=== PATIENT | female | born 1945 | race Caucasian/White ===

== ENCOUNTER 2023-07-26 16:03 | Inpatient (IN) | payer OTHER, SELFPAY ==
[2023-07-26 12:27] VITALS: BP 124/65
--- NOTE | 2023-07-26 12:42 | ED.GENMED ---
History of Present Illness
General
Chief Complaint: Breathing Problem
Source: patient
Exam Limitations: none
Time Seen by Provider: 07/26/23 12:35
Travel History
Have you had any contact with someone who has COVID-19?: No
Do you have any symptoms of coronavirus? Fever > 100 degrees, chills, cough, shortness of breath, sore throat, loss of taste or smell, muscle aches, or headache?: Yes
Symptoms:: SOB
History of Present Illness
History of Present Illness:
See MDM
Past History
Past History
ED Past Medical History: COPD and HTN
ED Past Surgical History: None
Social History
Tobacco: Smoker
Alcohol: None
Phy Exam
Physical Exam
Physical Exam:
See MDM
Scores
Heart Failure Risk
Heart Failure Risk Score: Not Applicable
Course
Orders/Labs/Results
Orders:
Orders
07/26/23 12:29
ECG [Electrocardiogram (*1)] Urgent
Reason for Study: Tachycardia
EKG- Treatment ONCE
07/26/23 12:41
CT Chest Pe Study Urgent
Comment:
Reason For Exam: SOB, chest and back pain
0.9% Sodium Chloride 1000 ml [Nss] 1,000 ml IV BOLUS
07/26/23 12:51
COVID-19 Antigen Urgent
Source: Nasal Swab
Complete Blood Count/With Diff Urgent
Comprehensive Metabolic Panel Urgent
Manual Differential Urgent
NT-proBNP Urgent
PTT Urgent
Prothrombin Time Urgent
Troponin I Urgent
07/26/23 14:50
Piperacillin/Tazo 3.375 Gram [Zosyn] 3.375 gram in 50 ml IV NOW
Vancomycin [Vancocin] 1,250 mg 0.9% Sodium Chloride 250 ml [Nss] 250 ml IV NOW
07/26/23 15:00
Blood Culture Q30M
JANNIE Source: Blood/Venous
Specimen Description:
07/26/23 15:30
Blood Culture Q30M
JANNIE Source: Blood/Venous
Specimen Description:
Abnormal Lab Results
07/26/23
12:51
WBC 29.4 H 10^3/uL
(4.8-10.8)
Abs Neuts (Manual) 26.7 H 10^3/uL
(1.4-6.5)
Segmented Neutrophils 81 H %
(42-75)
Band Neutrophils 10 H %
(0-3)
Lymphocytes (Manual) 4 L %
(20-51)
PT 18.1 H Sec
(11.4-14.6)
APTT 36.1 H Sec
(23.4-35.0)
Sodium 132 L mmol/L
(135-145)
Carbon Dioxide 19 L mmol/L
(22-30)
BUN 38 H mg/dl
(7-17)
Creatinine 1.7 H mg/dL
(0.6-1.0)
Glucose 113 H mg/dl
(70-99)
Alkaline Phosphatase 138 H U/L
(38-126)
07/26/23 12:51
07/26/23 12:51
Vital Signs
Initial and Last Documented VS:
Initial Vital Signs
Temp Pulse Resp BP Pulse Ox
98.3 F 141 18 124/65 93
07/26/23 12:27 07/26/23 12:27 07/26/23 12:27 07/26/23 12:27 07/26/23 12:27
Last Documented Vital Signs
Temp Pulse Resp BP Pulse Ox
98.3 F 127 30 102/63 95
07/26/23 12:27 07/26/23 13:45 07/26/23 13:45 07/26/23 13:05 07/26/23 13:45
MDM/Problems Addressed
Differential Diagnosis Includes:
HPI and MDM Narrative:
77-year-old female presenting with shortness of breath, chest and back pain. Symptoms have been ongoing since Tuesday. She went to urgent care and had a chest x-ray and there was a concern for left lower lobe pneumonia. Patient states they were
concerned about her fast heart rate and low blood pressure. Patient is tachycardic on arrival but she is not hypotensive. Although she has no fever, she had the sensation that she had a fever earlier in the day where she took Motrin.
Given her tachycardia, chest and back pain, will obtain CT rule out PE
Physical exam
General: Well appearing and non-toxic
HEENT: protecting airway. Dry mucous membranes
Neck: appears supple
CV: No evidence of cyanosis. Tachycardic
Resp: No accessory muscle use. Rhonchorous breath sounds to left base
Abd: Non-distended
Extremities: No deformities
Neuro: alert
Psych: Normal affect
Skin: Intact
Problems Addressed including Acute and Chronic Conditions affecting care:
1. Shortness of breath
Acuity: acute
Prognosis: stable
Details: Given her symptoms, will obtain CT to rule out PE
2. Tachycardia
Acuity: acute
Prognosis: stable
Details: Patient is clinically dry. Will give IV fluids
3. Dehydration
Acuity: acute
Prognosis: stable
Details: Will give IV fluids
Updates
1:30 PM patient found to have elevated creatinine and low GFR. I question prior history of kidney issues and patient states now. Her lab abnormalities are likely in the setting of dehydration. She is already getting IV fluids. We had a long
discussion about risk of kidney injury with IV contrast but discussed that missing a diagnosis of PE could be significant. Patient understands the concerns and gave verbal consent for CT
CT consistent with pneumonia. I did discuss that radiology cannot 100% rule out a mass. Given her persistent tachycardia, will start IV antibiotics and admit
Differential Diagnosis (but not limited to): Pneumonia, PE, lung mass
Testing considered: D-dimer but patient is high risk
Drug therapy (if applicable): OTC meds, please see d/c instruction regarding Rx drugs
Amount and/or Complexity of Data Reviewed
Clinical info obtained from: Patient
External data reviewed: N/A
Labs I independently reviewed (but not limited to): Leukocytosis
Radiology: The CT scan was personally and independently reviewed. In addition, official CT report reviewed.
Pulse Ox: not hypoxic
EKG independently reviewed: Sinus tachycardia, left axis, no STEMI
Performance Makeup Artist: Sinus tachycardia
Critical Care: N/A
Risk of Complication:
Social Determinants of health: Good social support
Discussed with other providers: Hospitalist
Escalation of Care includes Admit/Obs: Given the pneumonia and vital sign abnormalities, will admit
Occasional wrong word or 'sound a like' substitutions may have occurred due to the inherent limitations of voice recognition software. Read the chart carefully and recognize, using context, where substitutions have occurred.
*Critical Care Note
Total Time (30-74mins, 75-104mins- exclusive of procedures): Not Applicable
ED Attending Note
-
Portions of this chart may have been created with voice recognition software.� Occasional wrong word or��sound alike� substitutions may have occurred due to the inherent limitations of voice recognition software.
Discharge Plan
Departure
Patient Disposition: Admit
Date of Disposition: 07/26/23
Time of Disposition: 14:54
Admit to: Telemetry
Presentation/result/management discussed w/ accepting MD/DO: Hospitalist
Discharge Problem:
PNA (pneumonia)
Referrals:
Kassi Shi MD [Family Provider] -
Interventions
Interventions:
*Risk Screen - Suicide Last Done: 07/26/23 12:48
*General Assessment Last Done: 07/26/23 12:48
*Neglect/Abuse Screening Last Done: 07/26/23 12:48
ED- Fall Risk Assessment Last Done: 07/26/23 13:04
*ED COVID-19 Vaccine History Last Done: 07/26/23 12:29
ED- Cardiac Assessment Last Done: 07/26/23 13:04
ED- Pulmonary Assessment Last Done: 07/26/23 13:04
Discharge Date and Time
Print Language: CZECH
[2023-07-26 12:47] VITALS: BMI 22.9
[2023-07-26] MEDS: NSS 1000 IV ×2 (12:55→17:30)
[2023-07-26 13:05] VITALS: BP 102/63
[2023-07-26 13:07] LABS: Hematocrit 44.8 % (37.0-47.0); Hemoglobin 14.8 g/dL (12.0-16.0); Mean Corpuscular Hgb 29.8 pg (27.0-31.0); Mean Corpuscular Volume 90.1 fL (81.0-99.0); Mean Platelet Volume 10.3 fL (7.4-10.4); Platelet Count 240 10^3/uL (130-400); Red Blood Cell Count 4.97 10^6/uL (4.20-5.40); Red Cell Dist. Width 14.1 % (11.5-14.5); White Blood Cell Count 29.4 10^3/uL (4.8-10.8)
[2023-07-26 13:15] LABS: COVID-19 Antigen Negative (Negative)
[2023-07-26 13:21] LABS: ALT (SGPT) 16 U/L (0-35); AST (SGOT) 24 U/L (14-36); Albumin 3.5 g/dl (3.5-5.0); Alkaline Phosphatase 138 U/L (38-126); Blood Urea Nitrogen 38 mg/dl (7-17); Calcium 9.3 mg/dl (8.4-10.2); Carbon Dioxide 19 mmol/L (22-30); Chloride 100 mmol/L (98-107); Estimated Creatinine Clearance 25 ml/min; Glucose 113 mg/dl (70-99); Potassium 4.3 mmol/L (3.5-5.1); Sodium 132 mmol/L (135-145); Total Bilirubin 0.8 mg/dl (0.2-1.3); Total Protein 6.6 g/dl (6.3-8.2); eGFR 30.89
[2023-07-26 13:23] LABS: INR 1.52; PT 18.1 Sec (11.4-14.6)
[2023-07-26 13:24] LABS: APTT 36.1 Sec (23.4-35.0)
[2023-07-26 13:32] LABS: NT-proBNP 5100 pg/ml; Troponin I < 0.012 ng/ml
[2023-07-26 13:33] LABS: Absolute Neutrophils -Man Diff 26.7 10^3/uL (1.4-6.5); Band Neutrophils 10 % (0-3); Lymphocytes 4 % (20-51); Metamyelocytes 1 % (-); Monocytes 4 % (2-9); Normal RBC Morphology Yes; Platelets Checked Yes; Segmented Neutrophils 81 % (42-75); Total Cells Counted 100
[2023-07-26] MEDS: ZOSYN 50 IV ×2 (15:26→21:46)
[2023-07-26 15:45] VITALS: BP 120/58
[2023-07-26 16:00] VITALS: BP 109/51
[2023-07-26] MEDS: VANCOCIN 300 ML IV (16:13)
[2023-07-26] MEDS: VANCOCIN 300 MG IV (16:13)
--- NOTE | 2023-07-26 16:35 | HPS.HSE ---
Addendum entered and electronically signed by Jermaine Baker MD 07/26/23 17:14:
Patient seen, examined and discussed with resident
Agree with assessment and plan
Impression:
Presentation with left sided back pain
Large left lower lobe pneumonia, likely community-acquired
COPD, tobacco smoker. Subcarinal lymphadenopathy by imaging with concern for underlying mass.
Sepsis secondary to pneumonia (chills, tachycardia, leukocytosis)
Acute kidney injury
Metabolic acidosis.
Mild hyponatremia sodium 132
Plan:
Not hypoxic, tachycardic.
CT scan reviewed with large left lower lobe infiltrate minimal pleural effusion, concern for subcarinal lymphadenopathy.
Broad-spectrum antibiotics including vancomycin/Zosyn/doxycycline
Blood cultures/sputum cultures
Mucolytic's
Incentive spirometry
Pulmonology evaluation.
Repeat imaging, depends on clinical progression inpatient versus outpatient follow-up.
Acute kidney injury
Close to normal anion gap metabolic acidosis
Mild acidemia
Mild hyponatremia
Check urine sodium/Fena
Check urinalysis.
Check TSH.
Challenged with isotonic solution
Hold angiotensin receptor kylah.
Original Note:
Family Physician
-
Family Physician: Kassi Shi
Chief Complaint
-
left-sided upper back pain, tachycardia
History of Present Illness
Hien Everett, age 77, came to the emergency on 07-26-23 on left-sided upper back pain and tachycardia. The pain began 2 days ago and she went for outpatient evaluation. She was tachycardic and chest x-ray outpatient was suspicious for pneumonia;
she was advised to go to the emergency. She underwent a CT chest to rule out a PE; she was found to have a large dense left lower lobe consolidation, suspicious for pneumonia. In the ED, she was tachycardic but otherwise stable. WBC count and serum
creatinine were elevated. She met the SIRS criteria, and was admitted for management of sepsis secondary to left lower lobe pneumonia.
Medical History
Past Medical History
Past Medical History: Reports Other (hypertension, nephrolithiasis, tobacco use disorder)
Past Surgical History: Reports Other (tubal ligation)
Social History
Tobacco: Smoker (60+ year daily user)
Alcohol: Occasional
Drug: None
Employment: Retired
Family History
Family History: Not pertinent
Allergies / Home Medications
Allergies reflects when Allergies were last updated in [facility].
Home Medications with original date entered in [facility]
Allergy/Medication List:
Allergies
Allergy/AdvReac Type Severity Reaction Status Date / Time
No Known Allergies Allergy Unverified 07/26/23 12:27
Home Medications
acetaminophen 325 mg tablet (Tylenol) 650 mg PO Q4HPRN PRN mild pain 07/26/23
amlodipine 5 mg tablet 5 mg PO DAILY 07/26/23
biotin 10,000 mcg chewable tablet (Hair, Skin and Nails (biotin)) 2 mcg PO DAILY 07/26/23
losartan 25 mg tablet 25 mg PO DAILY 07/26/23
pseudoephedrine-ibuprofen 30 mg-200 mg capsule (Advil Cold and Sinus) 1 cap PO BIDPRN PRN head cold 07/26/23
Review of Systems
-
History Source: Patient
Constitutional: Reports No Symptoms
EENT: Reports No Symptoms
Respiratory: Reports Cough (chronic); Denies Hemoptysis or Trouble Breathing
Cardiac: Reports No Symptoms
Abdomen/GI: Reports No Symptoms
: Reports No Symptoms
Musculoskeletal: Reports No Symptoms
Skin: Reports No Symptoms
Neurological: Reports No Symptoms
Endocrine: Reports No Symptoms
Hematologic/Lymphatic: Reports No Symptoms
Psych: Reports No Symptoms
Physical Exam
Vital Signs
Vital Signs
Temp Pulse Resp BP Pulse Ox
98.3 F 129 30 109/51 95
07/26/23 12:27 07/26/23 16:00 07/26/23 16:00 07/26/23 16:00 07/26/23 16:00
Physical Exam
General: No Apparent Distress and Comfortable
HEENT: NormoCephalic, Anicteric, Moist mucous membranes and Atraumatic
Respiratory: Rales (mild; left lower lobe) and Decreased Breath Sounds (left lower lung)
Cardiac: S1/S2 and Regular Rhythm
GI: Soft, Non Tender, Non Distended and No Hepatosplenomegaly
Genito-urinary: No costovertebral tender
Musculoskeletal: Clubbing, No Clubbing and Cyanosis
Skin: Warm, Dry and IV/Catheter Site
Neuro: Awake, Alert, Oriented and Nonfocal/grossly intact
Hematologic/Lymphatic: No Lymphadenopathy
Psych: Calm
Laboratory Results
-
07/26/23 12:51
07/26/23 12:51
Laboratory Results
PT 18.1 Sec (11.4-14.6) H 07/26/23 12:51
INR 1.52 07/26/23 12:51
APTT 36.1 Sec (23.4-35.0) H 07/26/23 12:51
Total Bilirubin 0.8 mg/dl (0.2-1.3) 07/26/23 12:51
AST 24 U/L (14-36) 07/26/23 12:51
ALT 16 U/L (0-35) 07/26/23 12:51
Alkaline Phosphatase 138 U/L (38-126) H 07/26/23 12:51
Troponin I < 0.012 ng/ml 07/26/23 12:51
Impression/Plan
-
Impression
* Left lower lobe community-acquired pneumonia
* Sepsis secondary to pneumonia
* Acute kidney injury
* Essential hypertension
* Tobacco use disorder
* Possible subcarinal lymphadenopathy
Plan
Left lower lobe community-acquired pneumonia
- CT chest on 07-26-23 noted a 'large dense left lower lobe consolidation with air bronchograms extending to the left hilum most likely representing pneumonia'.
- Started on vancomycin, piperacillin-tazobactam and doxycycline.
- Bending blood cultures x2.
- Check procalcitonin in AM.
Sepsis secondary to pneumonia
- Meets SIRS criteria; WBC count of 28 and tachycardia in 130s.
- IV hydration.
- Bending blood cultures x2 and procalcitonin per above.
- She is tachycardic, but otherwise hemodynamically stable.
Acute kidney injury
- Baseline unavailable to review today; records requested.
- Likely in setting of sepsis.
- IV hydration.
- BMP in AM.
Essential hypertension
- Continue amlodipine.
- Hold losartan in setting of worsened renal function.
Tobacco use disorder
- Daily user for 60+ years.
- Encouraged to consider cutting back/quitting.
Possible subcarinal lymphadenopathy
- Will need repeat CT chest in 4-6 weeks as outpatient.
- Pulmonology consulted.
DVT prophylaxis
- SCD.
Code status
- DNR-DNI.
[2023-07-26 17:30] VITALS: BP 110/69
[2023-07-26 17:51] VITALS: BMI 22.6
[2023-07-26 18:08] LABS: Osmolality Urine 406 mOsm/kg (300-900)
[2023-07-26 18:21] LABS: Urine Sodium 12 mmol/L (30-90)
--- NOTE | 2023-07-26 18:32 | PHA.VAN.IN ---
Assessment
- Assessment
Renal Function: Unknown baseline
Concomitant Antimicrobials: piperacillin/tazobactam, doxycycline
Plan
- Plan
Initial / Loading Dose: vanc 1500mg administered @ 1613
Maintenance Regimen: dosing by level
Monitoring: random level 07/26 599
MRSA Screen: Ordered per protocol
Pharmacokinetics Vancomycin I
- -
Patient Age: 77
Patient Sex: Female
Vancomycin Day #: 1
Indication: Pulmonary/Respiratory
Requesting Provider: Dr. Baker
Pertinent Antimicrobial Allergies:
no pertinent antimicrobial allergies
Height / Weight:
Height 5 ft 5 in
Actual Weight 61.5 kg
- Vital Signs / Lab Results
Temp Pulse Resp BP Pulse Ox
97.7 F 111 19 110/69 96
07/26/23 17:30 07/26/23 17:30 07/26/23 17:30 07/26/23 17:30 07/26/23 18:23
Lab Results - Hematology
07/26/23
12:51
WBC 29.4 H
Band Neutrophils 10 H
Lab Results - Chemistry
07/26/23
12:51
BUN 38 H
Creatinine 1.7 H
Estimated Creat Clear 25
Albumin 3.5
[2023-07-26] MEDS: VIBRAMYCIN 100 MG PO (20:03)
[2023-07-26] MEDS: MUCINEX 600 MG PO (20:03)
[2023-07-26 23:23] VITALS: BP 124/60
[2023-07-27] MEDS: ZOFRAN 4 MG IV (00:04)
[2023-07-27] MEDS: NSS 1000 IV ×3 (03:46→20:26)
[2023-07-27] MEDS: ZOSYN 50 IV ×4 (03:47→22:07)
--- NOTE | 2023-07-27 04:14 | DOWNTIME ---
There was a [employer] Downtime on 07/27/2023 from 0100 to 07/27/2023 at 0337. Downtime documentation of patient's care, including medication administrations, has been reconciled in the electronic record per guidelines. Refer to the
patient's paper chart under the miscellaneous tab to see printed paper medication records and downtime forms.
[2023-07-27 07:54] LABS: Vancomycin Random 7.7 ug/ml
[2023-07-27 08:00] VITALS: BP 122/62
[2023-07-27 08:15] LABS: Procalcitonin 11.18 ng/ml (0.0-0.25)
[2023-07-27 08:38] LABS: TSH Reflex To Free T4 0.46 uIU/ml (0.47-4.68)
--- NOTE | 2023-07-27 08:50 | PHA.VAN.FU ---
Vancomycin Assessment / Plan
- Assessment
Renal Function: No New Labs Today
In the past 24 hrs, patient has been: Afebrile
Concomitant Antimicrobials: piperacillin/tazobactam, doxycycline
- Assessment - Therapeutic Drug Monitoring
Random Level: 7.7 - drawn ~15H after 1500mg loading dose
- Dosing Plan
Dosing by Level: Re-dose today (Vanc 1000mg)
- Monitoring Plan
Random Level: 07/27 0600
- Follow Up
Pharmacy will continue to follow.
Vancomycin Follow UP
- -
Patient Age: 77
Patient Sex: Female
Vancomycin Day #: 2
Indication: Pulmonary/Respiratory
Requesting Provider: Dr. Baker
Pertinent Antimicrobial Allergies:
NKDA
Height / Weight:
Height 5 ft 5 in
Actual Weight 61.5 kg
- Vital Signs / Lab Results
Temp Pulse Resp BP Pulse Ox
97.9 F 90 16 124/60 96
07/26/23 23:23 07/26/23 23:23 07/26/23 23:23 07/26/23 23:23 07/26/23 23:23
Lab Results - Hematology
07/26/23
12:51
WBC 29.4 H
Band Neutrophils 10 H
Lab Results - Chemistry
07/26/23
12:51
BUN 38 H
Creatinine 1.7 H
Estimated Creat Clear 25
Albumin 3.5
Therapeutic Drug Monitoring
Random Vancomycin 7.7 ug/ml 07/27/23 07:25
[2023-07-27 09:07] LABS: Free T4 2.44 ng/dl (0.78-2.19)
[2023-07-27] MEDS: TYLENOL 650 MG PO ×2 (09:41→20:01)
[2023-07-27] MEDS: MUCINEX 600 MG PO ×2 (09:42→20:01)
[2023-07-27] MEDS: VIBRAMYCIN 100 MG PO (09:42)
[2023-07-27] MEDS: NORVASC 5 MG PO (09:42)
--- NOTE | 2023-07-27 10:01 | CON.PUL ---
Consultation
Consultation Request
Date/Time Consultation Requested: 07/26/2023 - 1650
Date/Time Consultation Performed: 07/27/2023921
Requesting Provider: Dr. Chakraborty
Performing Provider: Dr. Harris
Reason for Consultation: Pneumonia
Medical History
-
Chief Complaint: Back pain
History of Present Illness:
77-year-old female with a past medical history of hypertension and reported Hx of COPD who presents with left-sided/middle back pain for several days. Patient was at urgent care and then sent to the ER due to hypotension and pneumonia. Patient was
tachycardic in triage to the 140s with palpitations. In triage, she was afebrile to 98.3 �F, saturating 93% on room air, normotensive to 124/65 and breathing at 18-31 breaths/min. Labs showed leukocytosis to 29.4, hyponatremia to 132, elevated
creatinine 1.7 (no prior to compare to), negative troponin of <0.012, elevated proBNP of 5100, and COVID antigen negative. Blood cultures were collected, and CT of the chest was performed showing a large dense left lower lobe consolidation
representing pneumonia. There also was subcarinal lymphadenopathy however left hilar evaluation was limited so central mass/malignancy in the left lower chest was unable to be entirely excluded. There also was mild thickening of the left adrenal
gland. Patient was given 1 L NS 0.9% in the ER, also Zosyn and admitted to the hospitalist service with pulmonary service now consulted for additional management/recommendations.
When I saw the pt, she was in bed, on room air, breathing comfortably in NAD. She denies being hospitalized in last 3 months, and she says she lives at home. No Hx of recent PNA, and she carries a Dx of COPD but she is not sure how she was Dx.
She is not the best historian. She says she obtained a 'breathing test,' (I presume spirometry or full PFT) many many years ago, and she was told she had COPD. She takes no inhalers at home. She does not have a evp of products & co founder. She admits to
having allergies which are seasonal, mainly to pollen. She says this past Tuesday morning she started to feel sick, with body aches and pains, no coughing, but she felt feverish - she never took her temperature. Then her back began hurting, and
thats what led her to come here to the ER. She currently says her back pain is improved - she is breathing okay. Denies RAE, abd pain, nausea/vomiting/diarrhea.
PMHx: Reported history of COPD
PSHx: Tubal ligation
Past Medical History
Past Medical History: Other (Above as per HPI)
Past Surgical History: Other (Above as per HPI)
Social History
Tobacco: Smoker
Alcohol: Occasional
Drug: None
Employment: Retired
Family History
Family History: Reviewed & Not Pertinent
Allergies / Home Medications
Allergies
Allergy/AdvReac Type Severity Reaction Status Date / Time
No Known Allergies Allergy Unverified 07/26/23 12:27
Home Medications
�Medication �Instructions �Recorded �Confirmed �Last Taken �Type
acetaminophen 325 mg tablet 650 mg PO Q4HPRN PRN mild pain 07/26/23 07/26/23 07/26/23 History
(Tylenol)
amlodipine 5 mg tablet 5 mg PO DAILY Blood Pressure 07/26/23 07/26/23 07/23/23 History
biotin 10,000 mcg chewable tablet 2 mcg PO DAILY Supplement 07/26/23 07/26/23 Unknown History
(Hair, Skin and Nails (biotin))
losartan 25 mg tablet 25 mg PO DAILY Blood Pressure 07/26/23 07/26/23 07/23/23 History
pseudoephedrine-ibuprofen 30 1 cap PO BIDPRN PRN head cold 07/26/23 07/26/23 07/26/23 History
mg-200 mg capsule (Advil Cold and
Sinus)
Review of Systems
-
History Source: Patient
All other systems: Negative unless noted
Vitals / Labs / Diagnostic Testing
Vital Signs
Temp Pulse Resp BP Pulse Ox
98.8 F 81 18 122/62 97
07/27/23 08:00 07/27/23 08:00 07/27/23 08:00 07/27/23 08:00 07/27/23 08:00
Lab Data
07/26/23 12:51
07/26/23 12:51
Laboratory Results
07/26/23
12:51
PT 18.1 H
INR 1.52
APTT 36.1 H
Microbiology
07/26/23 21:15 Nose Nasal Screen MRSA (PCR) - Final
MRSA not detected - performed by PCR methodology.
Diagnostic Testing:
Physical Exam
-
HEENT: Normocephalic and Anicteric
Cardiovascular: S1/S2, Peripheral Edema (Negative) and Other (Tachycardic)
Respiratory: Wheeze (Negative), Rales (Negative), Rhonchi (Left posterior lung base) and Non-Labored Respirations
GI: Soft, Non Distended, Non Tender and Normal Bowel Sounds
Neurology: Awake, Alert and Tremors (Negative)
Skin: Warm and Dry
General: Comfortable, Fever (Negative) and Chills (Negative)
Assessment
-
Assessment: 77-year-old female with a past medical history of hypertension and reported Hx of COPD who presents with left-sided/middle back pain for several days. Patient was at urgent care and then sent to the ER due to hypotension and pneumonia.
Patient was tachycardic in triage to the 140s with palpitations. In triage, she was afebrile to 98.3 �F, saturating 93% on room air, normotensive to 124/65 and breathing at 18-31 breaths/min. Labs showed leukocytosis to 29.4, hyponatremia to 132,
elevated creatinine 1.7 (no prior to compare to), negative troponin of <0.012, elevated proBNP of 5100, and COVID antigen negative. Blood cultures were collected, and CT of the chest was performed showing a large dense left lower lobe consolidation
representing pneumonia. There also was subcarinal lymphadenopathy however left hilar evaluation was limited so central mass/malignancy in the left lower chest was unable to be entirely excluded. There also was mild thickening of the left adrenal
gland. Patient was given 1 L NS 0.9% in the ER, also Zosyn and admitted to the hospitalist service with pulmonary service now consulted for additional management/recommendations.
Impression:
#Left lower lobe pneumonia
#Leukocytosis with bandemia likely due to LLL pneumonia with sepsis without shock
#Tobacco use disorder
#Abnormal CT chest with LLL dense consolidative opacity with air bronchograms, nodular opacities in the lingula + subcarinal lymphadenopathy
#Centrilobular emphysema with reported history of COPD � no PFTs on file
#Elevated creatinine due to suspected CORINNE but unable to rule out CKD (no baseline values known at this time) - given reduced serum HCO3, I presume this is an CORINNE possibly with component of CKD
#Hyponatremia
#Abnormal TFTs with low TSH and elevated free T4 due to primary hyperthyroidism
Plan:
- Continue with broad-spectrum antibiotics with vancomycin/Zosyn + doxycycline
- Obtain infectious workup with blood Cx, check sputum Cx, legionella and Strep PNA urine antigens
- Given history of COPD I am not opposed to change doxycycline to azithromycin (QTc: 460ms on EKG from 07/26/2023)
- Obtain prior records if available of prior CT chest imaging or any spirometry/PFT studies done
- Unclear if she is on any maintenance inhalers, but in the meantime we will start her on DuoNebs QID with prn Duonebs in between (monitor tachycardia, and change to xopenex/atrovent if HR rises >100 + persists)
- Maintain SpO2 >88-94% with supplemental O2 as needed
- Incentive spirometer encouraged
- Mucolytics with flutter valve as needed
- Nicotine patch
- Renally dose all meds/Abx
- Trend sCr, UOP and sNa
- Replete electrolytes with K>4, Mg>2
- Maintain euglycemia with goal BG >100 and <180
- DVT ppx
Pulmonary service will continue to follow along. I will arrange for outpatient follow-up with me in the office for full PFTs and management of her suspected COPD. She will also need repeat CT chest in about 6-8 weeks to follow her left-sided
pneumonia to resolution.
Total time spent today was 55 minutes for this encounter. Time includes reviewing laboratory test/imaging results, reviewing pertinent medical records, obtaining and reviewing medical history, performing an appropriate exam, ordering medications,
tests and procedures. Time also includes documentation of this encounter, coordinating patient care and communicating with other healthcare professionals. Total time does not include separately billed tests performed on this date of service.
Data:
CTA Chest 07-26-2023:
No findings to suggest central pulmonary embolism.
Large dense left lower lobe consolidation with air bronchograms extending to the left hilum most likely representing pneumonia. Unfortunately, as there is some possible subcarinal lymphadenopathy and evaluation of the left hilum is limited, central
mass/malignancy in the left lower chest cannot be entirely excluded. Recommend short-term follow-up Chest CT to confirm complete resolution.
Mild thickening of the left adrenal gland.
--- NOTE | 2023-07-27 10:32 | W.PN.HOSP.TC ---
Addendum entered and electronically signed by Jermaine Baker MD 07/27/23 15:27:
Patient seen, examined and discussed with resident
Agree with assessment and plan
Impression:
Presentation with left sided back pain
Large left lower lobe pneumonia, likely community-acquired
COPD, tobacco smoker. Subcarinal lymphadenopathy by imaging with concern for underlying mass.
Sepsis secondary to pneumonia (chills, tachycardia, leukocytosis)
Acute kidney injury
Metabolic acidosis.
Mild hyponatremia sodium 132
Plan:
Respiratory status remained stable with no requirements for supplemental oxygen
Large left lower lobe pneumonia with minimal pleural effusion on CT scan.
Initiated on broad-spectrum antibiotics including vancomycin/Zosyn/doxycycline
Follow blood cultures.
Continue mucolytic's, incentive spirometry
Pulmonology consultation pending
With large infiltrate and lymphadenopathy, tobacco use disorder will require follow-up imaging.
Acute kidney injury
Creatinine improved with hydration
Monitor oral intake
Wean off IV fluids.
Monitor blood pressure trend and consider to reintroduce angiotensin receptor kylah
Noted abnormal TFTs likely in the pattern of euthyroid sick syndrome.
Repeat in 3 to 4 weeks.
Original Note:
Today's Communication/Plan
-
* Continue antibiotics.
* Incentive spirometry, mucolytics and duoneb.
Assessment / Plan
Assessment / Plan
Assessment
Hien Everett, age 77, came to the emergency on 07-26-23 on left-sided upper back pain and tachycardia. The pain began 2 days ago and she went for outpatient evaluation. She was tachycardic and chest x-ray outpatient was suspicious for pneumonia;
she was advised to go to the emergency. She underwent a CT chest to rule out a PE; she was found to have a large dense left lower lobe consolidation, suspicious for pneumonia. In the ED, she was tachycardic but otherwise stable. WBC count and serum
creatinine were elevated. She met the SIRS criteria, and was admitted for management of sepsis secondary to left lower lobe pneumonia.
Impression
* Left lower lobe community-acquired pneumonia
* Sepsis secondary to pneumonia
* Acute kidney injury
* Essential hypertension
* Tobacco use disorder
* Possible subcarinal lymphadenopathy
Plan
Left lower lobe community-acquired pneumonia
- CT chest on 07-26-23 noted a 'large dense left lower lobe consolidation with air bronchograms extending to the left hilum most likely representing pneumonia'.
- Started on vancomycin, piperacillin-tazobactam and doxycycline.
- Bending blood cultures x2.
- Procalcitonin 11.18 on 07-27-23.
- Mucolytics, duonebs and incentive spirometry.
- Pulmonary consulted.
Sepsis secondary to pneumonia
- Meets SIRS criteria; WBC count of 28 and tachycardia in 130s.
- IV hydration.
- Bending blood cultures x2 and procalcitonin per above.
- She is tachycardic, but otherwise hemodynamically stable.
Acute kidney injury
- Baseline unavailable to review today; records requested.
- Likely in setting of sepsis.
- IV hydration.
- BMP in AM.
Essential hypertension
- Continue amlodipine.
- Hold losartan in setting of worsened renal function.
Tobacco use disorder
- Daily user for 60+ years.
- A pack a day prior to admission; can consider nicotine patch.
- Encouraged to consider cutting back/quitting.
Possible subcarinal lymphadenopathy
- Will need repeat CT chest in 4-6 weeks as outpatient; inpatient if condition worsens.
- Pulmonology consulted.
DVT prophylaxis
- SCD.
Code status
- DNR-DNI.
Anticipated Discharge: 24 - 48 hours
Subjective/Interval History
-
Date of Service: July 27, 2023
Objective Data
-
Vital Signs:
Vital Signs
Temp Pulse Resp BP Pulse Ox
98.8 F 81 18 122/62 97
07/27/23 08:00 07/27/23 08:00 07/27/23 08:00 07/27/23 08:00 07/27/23 08:00
I&O
07/26/23 07/27/23 07/28/23
06:59 06:59 06:59
Intake Total 80 / 80
Output Total 300 / 300
Balance -220 / -220
Review of Systems
-
History Source: Patient
Constitutional: Reports No Symptoms
EENT: Reports No Symptoms Reported
Respiratory: Reports No Symptoms
Cardiac: Reports No Symptoms
Abdomen/GI: Reports No Symptoms
Genitourinary: Reports No Symptoms
Musculoskeletal: Reports Arthralgias (mild and intermittent back and ankle ache)
Skin: Reports No Symptoms
Neuro: Reports No Symptoms
Endocrine: Reports No Symptoms
Hematologic / Lymphatic: Reports No Symptoms
Allergy / Immunology: Reports No Symptoms
Physical Exam
-
General: No Apparent Distress and Comfortable
HEENT: Normocephalic, Atraumatic, Moist Mucous Membranes and Anicteric
Respiratory: Rales (mild; left lower lobe) and Decreased Breath Sounds (left lower lobe)
Cardiac: Regular Rhythm, S1/S2 and Tachycardic
GI: Soft, Nontender, Nondistended and No Hepatosplenomegaly
Genito-urinary: No Costovertebral Tender
Musculoskeletal: No Clubbing, No Cyanosis and No Edema
Skin: Warm, Dry and IV Access / Catheter Site
Neuro: Awake, Alert, Oriented and Nonfocal/Grossly Intact
Psych: Calm
[2023-07-27] MEDS: VANCOCIN 200 IV (11:27)
[2023-07-27 13:25] LABS: % Basophils 0.4 % (0-2); % Eosinophils 0.1 % (0-6); % Immature Granulocytes 0.9 % (0-0.5); % Lymphocytes 7.9 % (20.5-51.1); % Monocytes 4.2 % (1.7-9.3); % Neutrophils 86.5 % (42.2-75.2); Absolute Basophils 0.1 10^3/uL (0-0.2); Absolute Immature Granulocytes 0.2 10^3/uL (0-0.05); Absolute Monocytes 1.1 10^3/uL (0.1-0.6); Absolute Neutrophils 21.5 10^3/uL (1.4-6.5); Hematocrit 35.1 % (37.0-47.0); Mean Corp Hgb Conc. 34.2 g/dL (33.0-37.0); Mean Corpuscular Volume 87.8 fL (81.0-99.0); Mean Platelet Volume 10.8 fL (7.4-10.4); Nucleated Red Blood Cells % 0 %; Platelet Count 207 10^3/uL (130-400); Red Cell Dist. Width 14.4 % (11.5-14.5); White Blood Cell Count 24.9 10^3/uL (4.8-10.8)
[2023-07-27 13:38] LABS: Blood Urea Nitrogen 24 mg/dl (7-17); Calcium 8.3 mg/dl (8.4-10.2); Carbon Dioxide 22 mmol/L (22-30); Chloride 106 mmol/L (98-107); Estimated Creatinine Clearance 62 ml/min; Glucose 115 mg/dl (70-99); Potassium 3.7 mmol/L (3.5-5.1); Sodium 135 mmol/L (135-145); eGFR > 60.00
--- NOTE | 2023-07-27 14:19 | CM ---
Patient seen bedside.
IA completed.
Patient lives alone in a 1 story home with 2 steps to enter.
Patient independent prior to admission without assistive devices.
patient drives.
No hx VN.
Denies home care needs.
PCP: Dr Shi
Pharmacy: [facility]
Plan: home no needs.
[2023-07-27 14:45] LABS: Glycohemoglobin (HgbA1c) 5.5 % (4.0-5.6)
[2023-07-27] MEDS: DUONEB 3 ML INH ×2 (15:24→19:31)
[2023-07-27 16:00] VITALS: BP 117/63
[2023-07-27] MEDS: HEPARIN 5000 UNITS SC (20:01)
[2023-07-27] MEDS: ZITHROMAX INFUSION 250 IV (20:26)
[2023-07-27 22:58] VITALS: BP 134/81
[2023-07-28] MEDS: ZOSYN 50 IV ×2 (03:05→09:06)
[2023-07-28 06:05] LABS: % Basophils 0.4 % (0-2); % Eosinophils 0.7 % (0-6); % Immature Granulocytes 0.4 % (0-0.5); % Lymphocytes 9.3 % (20.5-51.1); % Monocytes 4.8 % (1.7-9.3); % Neutrophils 84.4 % (42.2-75.2); Absolute Basophils 0.1 10^3/uL (0-0.2); Absolute Eosinophils 0.1 10^3/uL (0-0.7); Absolute Immature Granulocytes 0.1 10^3/uL (0-0.05); Absolute Lymphocytes 1.6 10^3/uL (1.2-3.4); Absolute Monocytes 0.8 10^3/uL (0.1-0.6); Absolute Neutrophils 14.1 10^3/uL (1.4-6.5); Hematocrit 35.9 % (37.0-47.0); Hemoglobin 12.1 g/dL (12.0-16.0); Mean Corp Hgb Conc. 33.7 g/dL (33.0-37.0); Mean Corpuscular Hgb 30.3 pg (27.0-31.0); Mean Platelet Volume 11.2 fL (7.4-10.4); Nucleated Red Blood Cells % 0 %; Platelet Count 238 10^3/uL (130-400); Red Blood Cell Count 3.99 10^6/uL (4.20-5.40); Red Cell Dist. Width 14.4 % (11.5-14.5); White Blood Cell Count 16.7 10^3/uL (4.8-10.8)
[2023-07-28 06:35] LABS: Blood Urea Nitrogen 17 mg/dl (7-17); Calcium 8.7 mg/dl (8.4-10.2); Carbon Dioxide 23 mmol/L (22-30); Chloride 109 mmol/L (98-107); Estimated Creatinine Clearance 72 ml/min; Glucose 96 mg/dl (70-99); Potassium 4.1 mmol/L (3.5-5.1); Sodium 140 mmol/L (135-145); eGFR > 60.00
[2023-07-28 06:36] LABS: Vancomycin Random 6.7 ug/ml
--- NOTE | 2023-07-28 06:41 | PTCARENOTE ---
Patient`s IV infiltrated. IV fluids stopped and IV team called twice for new line. Awaiting response. Will pass along to dayshift RN.
[2023-07-28 07:00] VITALS: BP 164/86
[2023-07-28] MEDS: DUONEB 3 ML INH ×4 (07:21→19:47)
[2023-07-28] MEDS: TYLENOL 650 MG PO ×2 (09:05→19:34)
[2023-07-28] MEDS: NORVASC 5 MG PO (09:05)
[2023-07-28] MEDS: ZITHROMAX 250 MG PO (09:05)
[2023-07-28] MEDS: MUCINEX 600 MG PO ×2 (09:05→19:29)
[2023-07-28] MEDS: HEPARIN 5000 UNITS SC ×2 (09:06→19:29)
[2023-07-28] MEDS: NICODERM TRANSDERMAL TRANSDERM (09:07)
--- NOTE | 2023-07-28 10:20 | W.PN.PUL3 ---
Today's Communication / Plan
-
Continue antibiotics to narrow to Unasyn
Hold off on systemic steroids given no wheezing and clinically seems to be improving on room air � reassess daily
Up OOB as tolerated
Encourage incentive spirometer
Mucolytics as needed
Outpatient follow-up with me with repeat imaging in about 6-8 weeks with PFTs and management of her suspected/reported COPD
Assessment
-
Assessment: 77-year-old female with a past medical history of hypertension and reported Hx of COPD who presents with left-sided/middle back pain for several days. Patient was at urgent care and then sent to the ER due to hypotension and pneumonia.
Patient was tachycardic in triage to the 140s with palpitations. In triage, she was afebrile to 98.3 �F, saturating 93% on room air, normotensive to 124/65 and breathing at 18-31 breaths/min. Labs showed leukocytosis to 29.4, hyponatremia to 132,
elevated creatinine 1.7 (no prior to compare to), negative troponin of <0.012, elevated proBNP of 5100, and COVID antigen negative. Blood cultures were collected, and CT of the chest was performed showing a large dense left lower lobe consolidation
representing pneumonia. There also was subcarinal lymphadenopathy however left hilar evaluation was limited so central mass/malignancy in the left lower chest was unable to be entirely excluded. There also was mild thickening of the left adrenal
gland. Patient was given 1 L NS 0.9% in the ER, also Zosyn and admitted to the hospitalist service with pulmonary service now consulted for additional management/recommendations.
Impression:
#Left lower lobe pneumonia due to Streptococcus pneumoniae
#Leukocytosis with bandemia likely due to LLL pneumonia with sepsis without shock
#Tobacco use disorder
#Abnormal CT chest with LLL dense consolidative opacity with air bronchograms, nodular opacities in the lingula + subcarinal lymphadenopathy
#Centrilobular emphysema with reported history of COPD � no PFTs on file
#Elevated creatinine due to suspected CORINNE but unable to rule out CKD (no baseline values known at this time) - given reduced serum HCO3, I presume this is an CORINNE possibly with component of CKD --> improving
#Hyponatremia
#Abnormal TFTs with low TSH and elevated free T4 due to primary hyperthyroidism
Plan:
- Narrow Abx to Unasyn given she has Strep pneumoniae
- Given that she is on room air, not wheezing and seems to be clinically improving, would not give systemic steroids at this time; reassess daily
- Follow up infectious workup with blood Cx, check sputum Cx; legionella negative; Strep PNA urine antigen is positive
- No need for atypical coverage given her (+) Strep PNA urine antigen
- Obtain prior records if available of prior CT chest imaging or any spirometry/PFT studies done
- Unclear if she is on any maintenance inhalers, but in the meantime I started her on DuoNebs QID with prn Duonebs in between (monitor tachycardia, and change to xopenex/atrovent if HR rises >100 + persists)
- Maintain SpO2 >88-94% with supplemental O2 as needed
- Incentive spirometer encouraged
- Mucolytics with flutter valve as needed
- Nicotine patch
- Renally dose all meds/Abx
- Trend sCr, UOP and sNa
- Replete electrolytes with K>4, Mg>2
- Maintain euglycemia with goal BG >100 and <180
- DVT ppx
Pulmonary service will continue to follow along. I will arrange for outpatient follow-up with me in the office for full PFTs and management of her suspected COPD. She will also need repeat CT chest in about 6-8 weeks to follow her left-sided
pneumonia to resolution.
Total time spent today was 35 minutes for this encounter. Time includes reviewing laboratory test/imaging results, reviewing pertinent medical records, obtaining and reviewing medical history, performing an appropriate exam, ordering medications,
tests and procedures. Time also includes documentation of this encounter, coordinating patient care and communicating with other healthcare professionals. Total time does not include separately billed tests performed on this date of service.
Data:
CTA Chest 07-26-2023:
No findings to suggest central pulmonary embolism.
Large dense left lower lobe consolidation with air bronchograms extending to the left hilum most likely representing pneumonia. Unfortunately, as there is some possible subcarinal lymphadenopathy and evaluation of the left hilum is limited, central
mass/malignancy in the left lower chest cannot be entirely excluded. Recommend short-term follow-up Chest CT to confirm complete resolution.
Mild thickening of the left adrenal gland.
Subjective Data
-
Date of Service:
Date of Service: July 28, 2023
Chief Complaint: Pulmonary Follow Up
Subjective:
Patient seen this morning. She is sitting in bed on room air in no acute distress. Has a slight cough which is dry. She denies any chest pain. She says her back pain comes and goes depending on her position. Otherwise she denies abdominal pain,
nausea, vomiting, fevers or chills.
Review of Systems
General: Other (Negative unless mentioned above)
Objective Data
Data Reviewed
Vital Signs / I&O / Oxygen:
Vital Signs
Temp Pulse Resp BP Pulse Ox
97.9 F 88 16 164/86 98
07/28/23 07:00 07/28/23 11:17 07/28/23 11:17 07/28/23 07:00 07/28/23 07:22
Intake and Output
07/27/23 07/28/23 07/29/23
06:59 06:59 06:59
Intake Total 80 / 80
Output Total 300 / 300
Balance -220 / -220
SaO2 98
Physical Exam
General: Respiratory Distress (negative), Comfortable, Chills (negative) and Sweats (negative)
Cardiovascular: S1-S2, Peripheral Edema (negative) and Other (Tachycardic)
Respiratory: Wheeze (negative), Crackles (Rales heard at left base), Rhonchi (negative) and Non-Labored Respirations
GI: Soft, Non Distended, Non Tender and Normal Bowel Sounds
Neurology: AO x 3 and Tremors (negative)
Skin: Warm and Dry
Labs/Micro/Reports
Lab Data
07/28/23 05:00
07/28/23 05:00
Microbiology
07/27/23 00:26 Urine Legionella Urinary Antigen - Final
Negative for Legionella pneumophila Serogroup 1 antigen.
A negative result does not rule out the possiblity of
Legionella infection due to other serogroups or species of
Legionella. Clinical correlation is recommended.
07/27/23 00:26 Urine Streptococcus pneumoniae Antigen (M - Final
Positive for Strep pneumo Ag
07/26/23 15:28 Blood/Venous Blood Culture - Preliminary
No Growth in 24 hours- Final report to follow
07/26/23 12:51 Blood/Venous Blood Culture - Preliminary
No Growth in 24 hours- Final report to follow
07/26/23 21:15 Nose Nasal Screen MRSA (PCR) - Final
MRSA not detected - performed by PCR methodology.
[2023-07-28] MEDS: UNASYN IV ×3 (11:00→23:31)
--- NOTE | 2023-07-28 11:24 | W.PN.HOSP.TC ---
Documented by User: Donald Chakraborty MD, Resident 07/28/23 11:30
Today's Communication/Plan
-
* Transition to ampicillin-sulbactam.
* Continue incentive spirometry, mucolytics and duoneb.
* Anticipated discharge tomorrow.
Assessment / Plan
Assessment / Plan
Assessment
Hien Everett, age 77, came to the emergency on 07-26-23 on left-sided upper back pain and tachycardia. The pain began 2 days ago and she went for outpatient evaluation. She was tachycardic and chest x-ray outpatient was suspicious for pneumonia;
she was advised to go to the emergency. She underwent a CT chest to rule out a PE; she was found to have a large dense left lower lobe consolidation, suspicious for pneumonia. In the ED, she was tachycardic but otherwise stable. WBC count and serum
creatinine were elevated. She met the SIRS criteria, and was admitted for management of sepsis secondary to left lower lobe pneumonia.
Impression
* Left lower lobe community-acquired pneumonia
* Sepsis secondary to pneumonia
* Acute kidney injury
* Essential hypertension
* Tobacco use disorder
* Possible subcarinal lymphadenopathy
Plan
Left lower lobe community-acquired pneumonia
- CT chest on 07-26-23 noted a 'large dense left lower lobe consolidation with air bronchograms extending to the left hilum most likely representing pneumonia'.
- Procalcitonin 11.18 on 07-27-23.
- Blood cultures negative.
- Urine strep pneumoniae antigen positive.
- Previously on vancomycin, piperacillin-tazobactam and doxycycline.
- Transition to ampicillin-sulbactam.
- Mucolytics, duonebs and incentive spirometry.
- Pulmonary consulted.
Sepsis secondary to pneumonia
- Meets SIRS criteria; WBC count of 28 and tachycardia in 130s.
- IV hydration.
- Negative blood cultures x2 and procalcitonin per above.
- She is tachycardic, but otherwise hemodynamically stable.
Acute kidney injury
- Baseline unavailable to review today; records requested.
- Likely in setting of sepsis.
- IV hydration.
- Resolved, and back to baseline per the scanned reports.
Essential hypertension
- Continue amlodipine.
- Held losartan in setting of worsened renal function; can re-start.
Tobacco use disorder
- Daily user for 60+ years.
- A pack a day prior to admission; can consider nicotine patch.
- Encouraged to consider cutting back/quitting.
Possible subcarinal lymphadenopathy
- Will need repeat CT chest in 4-6 weeks as outpatient; inpatient if condition worsens.
- Pulmonology consulted.
DVT prophylaxis
- SCD.
Code status
- DNR-DNI.
Anticipated Discharge: Within 24 hours
Subjective/Interval History
-
Date of Service: July 28, 2023
Objective Data
-
Labs:
Laboratory Results
07/28/23
05:00
WBC 16.7 H
Hgb 12.1
Hct 35.9 L
Plt Count 238
Sodium 140
Potassium 4.1
Chloride 109 H
Carbon Dioxide 23
BUN 17
Creatinine 0.6
Glucose 96
Calcium 8.7
Vital Signs:
Vital Signs
Temp Pulse Resp BP Pulse Ox
97.9 F 88 16 164/86 98
07/28/23 07:00 07/28/23 11:17 07/28/23 11:17 07/28/23 07:00 07/28/23 07:22
I&O
07/27/23 07/28/23 07/29/23
06:59 06:59 06:59
Intake Total 80 / 80
Output Total 300 / 300
Balance -220 / -220
Review of Systems
-
History Source: Patient
Constitutional: Reports No Symptoms
EENT: Reports No Symptoms Reported
Respiratory: Reports No Symptoms
Cardiac: Reports No Symptoms
Abdomen/GI: Reports No Symptoms
Genitourinary: Reports No Symptoms
Musculoskeletal: Reports Arthralgias (mild and intermittent back and ankle ache)
Skin: Reports No Symptoms
Neuro: Reports No Symptoms
Endocrine: Reports No Symptoms
Hematologic / Lymphatic: Reports No Symptoms
Allergy / Immunology: Reports No Symptoms
Physical Exam
-
General: No Apparent Distress and Comfortable
HEENT: Normocephalic, Atraumatic, Moist Mucous Membranes and Anicteric
Respiratory: Rales (mild; left lower lobe) and Decreased Breath Sounds (left lower lobe)
Cardiac: Regular Rhythm, S1/S2 and Tachycardic
GI: Soft, Nontender, Nondistended and No Hepatosplenomegaly
Genito-urinary: No Costovertebral Tender
Musculoskeletal: No Clubbing, No Cyanosis and No Edema
Skin: Warm, Dry and IV Access / Catheter Site
Neuro: Awake, Alert, Oriented and Nonfocal/Grossly Intact
Psych: Calm

Documented by User: Juan Wheat MD 07/28/23 12:39
Assessment / Plan
Assessment / Plan
Seen and examined the patient along with the resident. Formulated the treatment plan together.
Patient feels much better
Cardiovascular system S1-S2 appreciated
Bronchial breath sounds on the left side of Chest
Abdomen soft and nontender
Lower extremity no edema
#Left lower lobe pneumonia-treating as community-acquired pneumonia-Pneumococcal Pneumonia
Clinically improved and feels that she is ready to go home
Leukocytosis improving
Cultures with pneumococcus
Switch to Unasyn
Follow white count if normalizes we will change to Augmentin to completed course for total of 2 weeks.
She has possible subcarinal lymphadenopathy and tobacco use
She is aware that it is very important to follow-up on imaging to ensure clearance as we can miss underlying masses with this consolidation.
# Abnormal thyroid function test-repeat
# Acute kidney injury-resolved
# Hypertension-continue losartan And amlodipine
# Centrilobular emphysema / COPD-needs PFTs as outpatient
# Mild hyponatremia-better
# Active tobacco use-smoking cessation counseling
# DVT plexus Lovenox
# Full code
Assessment
Hien Everett, age 77, came to the emergency on 07-26-23 on left-sided upper back pain and tachycardia. The pain began 2 days ago and she went for outpatient evaluation. She was tachycardic and chest x-ray outpatient was suspicious for pneumonia;
she was advised to go to the emergency. She underwent a CT chest to rule out a PE; she was found to have a large dense left lower lobe consolidation, suspicious for pneumonia. In the ED, she was tachycardic but otherwise stable. WBC count and serum
creatinine were elevated. She met the SIRS criteria, and was admitted for management of sepsis secondary to left lower lobe pneumonia.
Impression
* Left lower lobe community-acquired pneumonia
* Sepsis secondary to pneumonia
* Acute kidney injury
* Essential hypertension
* Tobacco use disorder
* Possible subcarinal lymphadenopathy
Plan
Left lower lobe community-acquired pneumonia
- CT chest on 07-26-23 noted a 'large dense left lower lobe consolidation with air bronchograms extending to the left hilum most likely representing pneumonia'.
- Procalcitonin 11.18 on 07-27-23.
- Blood cultures negative.
- Urine strep pneumoniae antigen positive.
- Previously on vancomycin, piperacillin-tazobactam and doxycycline.
- Transition to ampicillin-sulbactam.
- Mucolytics, duonebs and incentive spirometry.
- Pulmonary consulted.
Sepsis secondary to pneumonia
- Meets SIRS criteria; WBC count of 28 and tachycardia in 130s.
- IV hydration.
- Negative blood cultures x2 and procalcitonin per above.
- She is tachycardic, but otherwise hemodynamically stable.
Acute kidney injury
- Baseline unavailable to review today; records requested.
- Likely in setting of sepsis.
- IV hydration.
- Resolved, and back to baseline per the scanned reports.
Essential hypertension
- Continue amlodipine.
- Held losartan in setting of worsened renal function; can re-start.
Tobacco use disorder
- Daily user for 60+ years.
- A pack a day prior to admission; can consider nicotine patch.
- Encouraged to consider cutting back/quitting.
Possible subcarinal lymphadenopathy
- Will need repeat CT chest in 4-6 weeks as outpatient; inpatient if condition worsens.
- Pulmonology consulted.
DVT prophylaxis
- SCD.
Code status
- DNR-DNI.
[2023-07-28 11:54] VITALS: PULSE 74; O2SAT 95
[2023-07-28] MEDS: COZAAR 25 MG PO (12:53)
[2023-07-28] MEDS: NICODERM TRANSDERMAL 7 MG TRANSDERM (17:50)
[2023-07-28 23:36] VITALS: BP 149/87
[2023-07-29] MEDS: UNASYN IV (05:25)
[2023-07-29] MEDS: COMPAZINE 5 MG IV (06:34)
[2023-07-29 07:00] VITALS: BP 164/90
[2023-07-29] MEDS: DUONEB 3 ML INH (07:29)
[2023-07-29 07:31] LABS: % Basophils 0.4 % (0-2); % Eosinophils 0.7 % (0-6); % Immature Granulocytes 0.9 % (0-0.5); % Monocytes 8.6 % (1.7-9.3); % Neutrophils 73.4 % (42.2-75.2); Absolute Eosinophils 0.1 10^3/uL (0-0.7); Absolute Immature Granulocytes 0.1 10^3/uL (0-0.05); Absolute Lymphocytes 1.6 10^3/uL (1.2-3.4); Absolute Monocytes 0.9 10^3/uL (0.1-0.6); Absolute Neutrophils 7.3 10^3/uL (1.4-6.5); Hemoglobin 12.8 g/dL (12.0-16.0); Mean Corp Hgb Conc. 32.8 g/dL (33.0-37.0); Mean Corpuscular Hgb 29.5 pg (27.0-31.0); Mean Corpuscular Volume 89.9 fL (81.0-99.0); Mean Platelet Volume 10.4 fL (7.4-10.4); Nucleated Red Blood Cells % 0 %; Platelet Count 254 10^3/uL (130-400); Red Blood Cell Count 4.34 10^6/uL (4.20-5.40); Red Cell Dist. Width 14.1 % (11.5-14.5); White Blood Cell Count 9.9 10^3/uL (4.8-10.8)
[2023-07-29 07:51] LABS: Blood Urea Nitrogen 6 mg/dl (7-17); Calcium 8.5 mg/dl (8.4-10.2); Carbon Dioxide 29 mmol/L (22-30); Chloride 103 mmol/L (98-107); Estimated Creatinine Clearance 72 ml/min; Glucose 95 mg/dl (70-99); Potassium 3.6 mmol/L (3.5-5.1); Sodium 141 mmol/L (135-145); eGFR > 60.00
[2023-07-29] MEDS: NICODERM TRANSDERMAL 7 MG TRANSDERM (08:05)
[2023-07-29] MEDS: MUCINEX 600 MG PO (08:05)
[2023-07-29] MEDS: COZAAR 25 MG PO (08:06)
[2023-07-29] MEDS: HEPARIN 5000 UNITS SC (08:06)
[2023-07-29] MEDS: NORVASC 5 MG PO (08:06)
[2023-07-29 08:28] VITALS: BP 164/90
--- NOTE | 2023-07-29 08:33 | W.PN.HOSP.TC ---
Addendum entered and electronically signed by Juan Wheat MD 07/29/23 11:57:
Patient is slightly tachycardic and asymptomatic
PE study was negative
TSH repeat is normal
Repeat TSH as outpatient
Patient has a history of tachycardia as outpatient
Suspect reflex tachycardia with amlodipine therefore discontinue that and start Lopressor 25 twice daily
Watch and if heart rate is better can discharge.
Addendum entered and electronically signed by Juan Wheat MD 07/29/23 11:19:
Seen and examined the patient with resident. Agree with plan.
Anxious to go home. No shortness of breath or chest pain.
Exam bronchial breath sounds on the left side otherwise unremarkable good breath sounds heart
No pedal edema
Discharged with a total of 2 weeks of antibiotics
Repeat imaging and the importance of that discussed with the patient and stressed.
Discussed with pulmonary who is also okay with discharge.
OP Pulm Follow up.
Original Note:
Today's Communication/Plan
-
* Anticipated discharge today.
* 14-day amoxicillin-clavulanate outpatient.
* Follow-up with pulmonology and CT chest outpatient.
Assessment / Plan
Assessment / Plan
Assessment
Hien Everett, age 77, came to the emergency on 07-26-23 on left-sided upper back pain and tachycardia. The pain began 2 days ago and she went for outpatient evaluation. She was tachycardic and chest x-ray outpatient was suspicious for pneumonia;
she was advised to go to the emergency. She underwent a CT chest to rule out a PE; she was found to have a large dense left lower lobe consolidation, suspicious for pneumonia. In the ED, she was tachycardic but otherwise stable. WBC count and serum
creatinine were elevated. She met the SIRS criteria, and was admitted for management of sepsis secondary to left lower lobe pneumonia.
Impression
* Left lower lobe community-acquired pneumonia
* Sepsis secondary to pneumonia
* Acute kidney injury
* Essential hypertension
* Tobacco use disorder
* Possible subcarinal lymphadenopathy
Plan
Left lower lobe community-acquired pneumonia
- CT chest on 07-26-23 noted a 'large dense left lower lobe consolidation with air bronchograms extending to the left hilum most likely representing pneumonia'.
- Procalcitonin 11.18 on 07-27-23.
- Blood cultures negative.
- Urine strep pneumoniae antigen positive.
- Previously on vancomycin, piperacillin-tazobactam and doxycycline.
- Transition to ampicillin-sulbactam.
- Mucolytics, duonebs and incentive spirometry.
- Pulmonary consulted.
Sepsis secondary to pneumonia
- Meets SIRS criteria; WBC count of 28 and tachycardia in 130s.
- IV hydration.
- Negative blood cultures x2 and procalcitonin per above.
- She is tachycardic, but otherwise hemodynamically stable.
Acute kidney injury
- Baseline unavailable to review today; records requested.
- Likely in setting of sepsis.
- IV hydration.
- Resolved, and back to baseline per the scanned reports.
Essential hypertension
- Continue amlodipine.
- Held losartan in setting of worsened renal function; can re-start.
Tobacco use disorder
- Daily user for 60+ years.
- A pack a day prior to admission; can consider nicotine patch.
- Encouraged to consider cutting back/quitting.
Possible subcarinal lymphadenopathy
- Will need repeat CT chest in 4-6 weeks as outpatient; inpatient if condition worsens.
- Pulmonology consulted.
DVT prophylaxis
- SCD.
Code status
- DNR-DNI.
Anticipated Discharge: Today
Subjective/Interval History
-
Date of Service: July 29, 2023
Objective Data
-
Labs:
Laboratory Results
07/29/23
07:03
WBC 9.9
Hgb 12.8
Hct 39.0
Plt Count 254
Sodium 141
Potassium 3.6
Chloride 103
Carbon Dioxide 29
BUN 6 L
Creatinine 0.5 L
Glucose 95
Calcium 8.5
Vital Signs:
Vital Signs
Temp Pulse Resp BP Pulse Ox
97.9 F 85 16 164/90 96
07/29/23 07:00 07/29/23 07:30 07/29/23 07:30 07/29/23 07:00 07/29/23 07:30
I&O
07/28/23 07/29/23 07/30/23
06:59 06:59 06:59
Intake Total 480 / 480
Balance 480 / 480
Review of Systems
-
History Source: Patient
Constitutional: Reports No Symptoms
EENT: Reports No Symptoms Reported
Respiratory: Reports No Symptoms
Cardiac: Reports No Symptoms
Abdomen/GI: Reports No Symptoms
Genitourinary: Reports No Symptoms
Musculoskeletal: Reports Arthralgias (mild and intermittent back and ankle ache)
Skin: Reports No Symptoms
Neuro: Reports No Symptoms
Endocrine: Reports No Symptoms
Hematologic / Lymphatic: Reports No Symptoms
Allergy / Immunology: Reports No Symptoms
Physical Exam
-
General: No Apparent Distress and Comfortable
HEENT: Normocephalic, Atraumatic, Moist Mucous Membranes and Anicteric
Respiratory: Rales (mild; left lower lobe), Non Labored Respirations and Decreased Breath Sounds (left lower lobe)
Cardiac: Regular Rhythm, S1/S2 and Tachycardic
GI: Soft, Nontender, Nondistended and No Hepatosplenomegaly
Genito-urinary: No Costovertebral Tender
Musculoskeletal: No Clubbing, No Cyanosis and No Edema
Skin: Warm, Dry and IV Access / Catheter Site
Neuro: Awake, Alert, Oriented and Nonfocal/Grossly Intact
Psych: Calm and Intact Judgement/Insight
--- NOTE | 2023-07-29 09:19 | W.PN.PUL3 ---
Today's Communication / Plan
-
Continue Unasyn - finished 7-10 days of ABx
Hold off on systemic steroids given no wheezing and clinically seems to be improving on room air � reassess daily
Up OOB as tolerated
Encourage incentive spirometer
Mucolytics as needed
Patient doing well and is being prepared for discharge home. I will arrange for outpatient follow-up with me in the office for full PFTs and management of her suspected COPD. She will also need repeat CT chest in about 6-8 weeks to follow her
left-sided pneumonia to resolution. Pulmonary service will now sign off. Please reconsult if there are any additional questions/concerns, or if patient's respiratory status deteriorates.
Assessment
-
Assessment: 77-year-old female with a past medical history of hypertension and reported Hx of COPD who presents with left-sided/middle back pain for several days. Patient was at urgent care and then sent to the ER due to hypotension and pneumonia.
Patient was tachycardic in triage to the 140s with palpitations. In triage, she was afebrile to 98.3 �F, saturating 93% on room air, normotensive to 124/65 and breathing at 18-31 breaths/min. Labs showed leukocytosis to 29.4, hyponatremia to 132,
elevated creatinine 1.7 (no prior to compare to), negative troponin of <0.012, elevated proBNP of 5100, and COVID antigen negative. Blood cultures were collected, and CT of the chest was performed showing a large dense left lower lobe consolidation
representing pneumonia. There also was subcarinal lymphadenopathy however left hilar evaluation was limited so central mass/malignancy in the left lower chest was unable to be entirely excluded. There also was mild thickening of the left adrenal
gland. Patient was given 1 L NS 0.9% in the ER, also Zosyn and admitted to the hospitalist service with pulmonary service now consulted for additional management/recommendations.
Impression:
#Left lower lobe pneumonia due to Streptococcus pneumoniae
#Leukocytosis with bandemia likely due to LLL pneumonia with sepsis without shock - resolved
#Tobacco use disorder
#Abnormal CT chest with LLL dense consolidative opacity with air bronchograms, nodular opacities in the lingula + subcarinal lymphadenopathy
#Centrilobular emphysema with reported history of COPD � no PFTs on file
#Elevated creatinine due to suspected CORINNE but unable to rule out CKD (no baseline values known at this time) - given reduced serum HCO3, I presume this is an CORINNE possibly with component of CKD --> resolved
#Hyponatremia - resolved
#Abnormal TFTs with low TSH and elevated free T4 likely due to acute illness - TSH now normalized
Plan:
- Narrowed Abx to Unasyn given she has Strep pneumoniae
- Given that she is on room air, not wheezing and seems to be clinically improving, would not give systemic steroids at this time; reassess daily --> still no need for steroids at this time
- Follow up infectious workup with blood Cx, check sputum Cx; legionella negative; Strep PNA urine antigen is positive
- No need for atypical coverage given her (+) Strep PNA urine antigen
- Obtain prior records if available of prior CT chest imaging or any spirometry/PFT studies done
- Unclear if she is on any maintenance inhalers, but in the meantime I started her on DuoNebs QID with prn Duonebs in between (monitor tachycardia, and change to xopenex/atrovent if HR rises >100 + persists)
- I will check PFTs in the office and discuss starting a maintenance inhaler
- Maintain SpO2 >88-94% with supplemental O2 as needed
- Incentive spirometer encouraged
- Mucolytics with flutter valve as needed
- Nicotine patch
- Renally dose all meds/Abx
- Trend sCr, UOP and sNa
- Replete electrolytes with K>4, Mg>2
- Maintain euglycemia with goal BG >100 and <180
- DVT ppx
Patient doing well and is being prepared for discharge home. I will arrange for outpatient follow-up with me in the office for full PFTs and management of her suspected COPD. She will also need repeat CT chest in about 6-8 weeks to follow her
left-sided pneumonia to resolution. Pulmonary service will now sign off. Thank you for allowing us to be involved in the care of this patient. Please reconsult if there are any additional questions/concerns, or if patient's respiratory status
deteriorates.
Total time spent today was 25 minutes for this encounter. Time includes reviewing laboratory test/imaging results, reviewing pertinent medical records, obtaining and reviewing medical history, performing an appropriate exam, ordering medications,
tests and procedures. Time also includes documentation of this encounter, coordinating patient care and communicating with other healthcare professionals. Total time does not include separately billed tests performed on this date of service.
Data:
CTA Chest 07-26-2023:
No findings to suggest central pulmonary embolism.
Large dense left lower lobe consolidation with air bronchograms extending to the left hilum most likely representing pneumonia. Unfortunately, as there is some possible subcarinal lymphadenopathy and evaluation of the left hilum is limited, central
mass/malignancy in the left lower chest cannot be entirely excluded. Recommend short-term follow-up Chest CT to confirm complete resolution.
Mild thickening of the left adrenal gland.
Subjective Data
-
Date of Service:
Date of Service: July 29, 2023
Chief Complaint: Pulmonary Follow Up
Subjective:
Patient seen this morning. She is doing well, denies shortness of breath, denies back pain and has an occasional dry cough. Understands that she needs to quit smoking cigarettes and she is motivated to do so. Currently on room air breathing
comfortably. Being prepared for discharge home today.
Review of Systems
General: Other (Negative unless mentioned above)
Objective Data
Data Reviewed
Vital Signs / I&O / Oxygen:
Vital Signs
Temp Pulse Resp BP Pulse Ox
97.9 F 85 16 164/90 96
07/29/23 07:00 07/29/23 07:30 07/29/23 07:30 07/29/23 07:00 07/29/23 07:30
Intake and Output
0607/29/23 07/30/23
06:59 06:59 06:59
Intake Total 480 / 480
Balance 480 / 480
SaO2 96
Physical Exam
General: Respiratory Distress (negative), Comfortable, Chills (negative) and Sweats (negative)
Cardiovascular: S1-S2, Peripheral Edema (negative) and Other (Tachycardic)
Respiratory: Wheeze (negative), Crackles (Left base), Rhonchi (negative) and Non-Labored Respirations
GI: Soft, Non Distended, Non Tender and Normal Bowel Sounds
Neurology: AO x 3 and Tremors (negative)
Skin: Warm and Dry
Labs/Micro/Reports
Lab Data
07/29/23 07:03
07/29/23 07:03
Microbiology
07/26/23 15:28 Blood/Venous Blood Culture - Preliminary
No Growth in 48 hours- Final report to follow
07/26/23 12:51 Blood/Venous Blood Culture - Preliminary
No Growth in 48 hours- Final report to follow
07/27/23 00:26 Urine Legionella Urinary Antigen - Final
Negative for Legionella pneumophila Serogroup 1 antigen.
A negative result does not rule out the possiblity of
Legionella infection due to other serogroups or species of
Legionella. Clinical correlation is recommended.
07/27/23 00:26 Urine Streptococcus pneumoniae Antigen (M - Final
Positive for Strep pneumo Ag
07/26/23 21:15 Nose Nasal Screen MRSA (PCR) - Final
MRSA not detected - performed by PCR methodology.
--- NOTE | 2023-07-29 10:44 | W.DCSUMMARY ---
Documented by User: Donald Chakraborty MD, Resident 07/29/23 11:10
Discharge Summary
Discharge Data
Date of Admission: 07/26/23
Date of Discharge: 07/29/23
-
Pending Results: No
Hospital Course
Primary discharge diagnosis
* Left lower lobe community-acquired pneumonia
Secondary discharge diagnoses
* Sepsis secondary to pneumonia
* Acute kidney injury
* Essential hypertension
* Tobacco use disorder
* Possible subcarinal lymphadenopathy
Hospital course
Hien Everett, age 77, came to the emergency department on 07-26-23 with left-sided upper back pain. Imaging in the ED showed a large dense left lower lobe consolidation, suspicious for pneumonia. She was tachycardic but otherwise stable. WBC
count and serum creatinine were elevated. She was admitted for management of sepsis secondary to left lower lobe pneumonia. She was initiated on vancomycin, piperacillin-tazobactam and doxycycline, then narrowed to ampicillin-sulbactam by the time
of her discharge. Renal function returned back to baseline with IV hydration and supportive care; losartan was re-started prior to discharge. WBC count returned back to within normal limits, and her vitals remained stable throughout her visit. On
the day of her discharge, physical examination was fairly unremarkable, vitals were stable, blood work noted improvement. She will be discharged back to home with a 14-day course of amoxicillin-clavulanate and albuterol inhaler. Follow-up with
primary and pulmonology outpatient. She will require repeat CT chest in 6 weeks for lymphadenopathy found on imaging and repeat TSH with fT4 in 6-8 weeks.
Discharge Plan
-
Patient Disposition: Home (Routine Discharge)
Discharge Diagnosis/Procedures: Community-acquired pneumonia, left lower lobe, Hypertension .
Condition: Good
Diet: As tolerated
Activity: As tolerated
Driving Restrictions: As prior to admission
Bathing Restrictions: None
Blood Work: CBC and BMP in 1 week; TSH with T4 in 6-8 weeks
Others Tests: CT chest after 4-6 weeks outpatient
Activity Restrictions/Additional Instructions:
* Very important to get a repeat CT chest after 4-6 weeks to further clarify/evaluate lymph node swelling noted on the CT chest done at the hospital. If you develop , fever or shortness of breath, call doctor.
Instructions: Community-acquired pneumonia in adults, Quitting smoking
Referrals:
Clive Harris MD [Active] - in four to six weeks (Full PFTs on day of office visit; repeat CT chest - lymphadenopathy)
Kassi Shi MD [Family Provider] - in two weeks (Needs repeat CT chest after 4-6 weeks to evaluate lymphadenopathy)
Prescriptions:
New
albuterol sulfate 90 mcg/actuation HFA aerosol inhaler
2 puff inhalation Q6H PRN (Reason: shortness of breath or wheezing) 14 Days Qty: 8.5 3RF
amoxicillin-pot clavulanate 875-125 mg tablet
1 tab PO Q12H 14 Days Qty: 28 0RF
Continued
amlodipine 5 mg tablet
5 mg PO DAILY
acetaminophen [Tylenol] 325 mg Tablet
650 mg PO Q4HPRN PRN (Reason: mild pain)
losartan 25 mg Tablet
25 mg PO DAILY
Advil Cold and Sinus 30-200 mg Capsule
1 cap PO BIDPRN PRN (Reason: head cold )
Hair, Skin and Nails (biotin) 10,000 mcg Tablet,Chewable
2 mcg PO DAILY
Discharge Orders:
Discharge Patient (As Directed); Ordered 07/29/23
Ordered By: Donald Chakraborty
Discharge Date and Time
Print Language: BAHRAINI

Documented by User: Juan Wheat MD 07/29/23 11:20
Discharge Summary
Discharge Data
Date of Admission: 07/26/23
Date of Discharge: 07/29/23
Discharge Plan
-
Patient Disposition: Home (Routine Discharge)
Discharge Diagnosis/Procedures: Community-acquired pneumonia, left lower lobe, Hypertension .
Condition: Good
Diet: As tolerated
Activity: As tolerated
Driving Restrictions: As prior to admission
Bathing Restrictions: None
Blood Work: CBC and BMP in 1 week; TSH with T4 in 6-8 weeks
Others Tests: CT chest after 4-6 weeks outpatient
Activity Restrictions/Additional Instructions:
* Very important to get a repeat CT chest after 4-6 weeks to further clarify/evaluate lymph node swelling noted on the CT chest done at the hospital. If you develop , fever or shortness of breath, call doctor.
Instructions: Community-acquired pneumonia in adults, Quitting smoking
Referrals:
Clive Harris MD [Active] - in four to six weeks (Full PFTs on day of office visit; repeat CT chest - lymphadenopathy)
Kassi Shi MD [Family Provider] - in two weeks (Needs repeat CT chest after 4-6 weeks to evaluate lymphadenopathy)
Prescriptions:
New
albuterol sulfate 90 mcg/actuation HFA aerosol inhaler
2 puff inhalation Q6H PRN (Reason: shortness of breath or wheezing) 14 Days Qty: 8.5 3RF
amoxicillin-pot clavulanate 875-125 mg tablet
1 tab PO Q12H 14 Days Qty: 28 0RF
Continued
amlodipine 5 mg tablet
5 mg PO DAILY
acetaminophen [Tylenol] 325 mg Tablet
650 mg PO Q4HPRN PRN (Reason: mild pain)
losartan 25 mg Tablet
25 mg PO DAILY
Advil Cold and Sinus 30-200 mg Capsule
1 cap PO BIDPRN PRN (Reason: head cold )
Hair, Skin and Nails (biotin) 10,000 mcg Tablet,Chewable
2 mcg PO DAILY
Discharge Orders:
Discharge Patient (As Directed); Ordered 07/29/23
Ordered By: Donald Chakraborty
Discharge Date and Time
Print Language: BAHRAINI
--- NOTE | 2023-07-29 11:02 | CM ---
Patient seen bedside.
Patient for d/c home today, no needs.
IMM completed.
Plan: home no needs.
[2023-07-29] MEDS: DUONEB INH (11:17)
[2023-07-29 11:20] VITALS: BP 150/86
[2023-07-29] MEDS: TOPROL XL 25 MG PO (12:10)
--- NOTE | 2023-07-29 12:19 | PTCARENOTE ---
Prior to discharge, vitals obtained, HR 130s. HR noted to be irregular apically. EKG obtained, NSR w/ PVCs, HR 130s. Dr. Wheat and Dr. Chakraborty aware. Electronic order noted for Metoprolol, given, see MAR. Dr. Wheat recommends monitoring for
additional 2 hours. Plan of care ongoing.
[2023-07-29 14:03] VITALS: BP 141/95
--- NOTE | 2023-07-29 14:38 | PTCARENOTE ---
Repeat HR 110, BP 141/95. Patient eager for discharge. Dr. Mary Alice corado. Okayed for discharge.
== END 2023-07-29 14:59 | disposition home or self-care (01) | DRG 871 ==
LOC: 4 WEST ACU 16:03
PROVIDERS: Student in an Organized Health Care Education/Training Program; ADMITTING PHYSICIAN Internal Medicine; ATTENDING PHYSICIAN Hospitalist; CONSULT PHYSICIAN Internal Medicine Critical Care Medicine; EMERGENCY PHYSICIAN Student in an Organized Health Care Education/Training Program; FAMILY PHYSICIAN Family Medicine
DX: A41.9 Sepsis, unspecified organism (principal); J18.9 Pneumonia, unspecified organism; J44.0 Chronic obstructive pulmonary disease with (acute) lower respiratory infection; E87.1 Hypo-osmolality and hyponatremia; N17.9 Acute kidney failure, unspecified; E87.20 Acidosis, unspecified; J43.2 Centrilobular emphysema; E05.90 Thyrotoxicosis, unspecified without thyrotoxic crisis or storm; I10 Essential (primary) hypertension; R59.0 Localized enlarged lymph nodes; R79.89 Other specified abnormal findings of blood chemistry; Z79.899 Other long term (current) drug therapy; Z11.52 Encounter for screening for COVID-19
CPT/HCPCS: 71275; 80048; 80053; 80202; 83036; 83880; 83935; 84145; 84300; 84439; 84443; 84484; 85025; 85610; 85730; 87040; 87449; 87641; 87811; 87899; 93005; 94640; 96365; 97161; 97165; 99285; 99406; Q9967

== ENCOUNTER 2023-08-11 17:01 | Inpatient (IN) | payer OTHER, SELFPAY ==
[2023-08-11] VITALS (8 sets, daily range): BP systolic 160–185; BP diastolic 75–97
--- NOTE | 2023-08-11 13:08 | ED.GENMED ---
History of Present Illness
General
Chief Complaint: Abdominal Symptoms
Source: patient
Time Seen by Provider: 08/11/23 12:56
History of Present Illness
History of Present Illness:
78-year-old female with past medical history of hypertension and COPD, recently hospitalized for pneumonia, continues to take amoxicillin after starting antibiotics on July 25, today is the last day, who started with nausea vomiting and diarrhea
this morning around 1 AM. Patient states that she has had 2 episodes of watery diarrhea, generalized abdominal discomfort and 1 episode of vomiting. She still felt nauseous upon EMS arriving to her house and was given some Zofran with reported
resolution of her nausea. Presently patient states she feels better now than she has throughout the rest of the day today. She does not believe she has any fevers but yesterday did note a little bit of a chill. No known sick contacts or recent
travel. No other concerns at this time. She does note diminished p.o. intake today to both solids and liquids.
Past History
Past History
ED Past Medical History: COPD and HTN
ED Past Surgical History: None
Social History
Tobacco: Smoker
Alcohol: None
Drug: None
Review of Systems
Review of Systems
All Other Systems: ROS reviewed and negative except as documented in HPI and ROS
Phy Exam
Physical Exam
Physical Exam:
GENERAL: Alert , in no apparent distress, smiling and pleasant
EYE: clear conjunctiva b/l
HEAD: NCAT
ENT: o/p clr, mmm.
CARDIAC: Tachycardic rate and rhythm, no murmur
LUNGS: Clear breath sounds bilaterally, no acute respiratory distress, no wheezes/rales/rhonchi
ABDOMEN: Soft, without focal tenderness, no r/g, no cvat
NEUROLOGICAL: Alert and oriented
SKIN: Warm and dry, skin intact.
MUSCULOSKELETAL: well perfused.
PSYCH: Normal and appropriate interaction.
Scores
Heart Failure Risk
Heart Failure Risk Score: Not Applicable
Heart Score for Chest Pain Patients
STEMI patient?: Not applicable
Withdrawal Assessment of Alcohol
Withdrawal Assessment Completed?: Not applicable
Course
Orders/Labs/Results
Orders:
Orders
08/11/23 12:55
Electrocardiogram (*1) Urgent
Reason for Study: Abnormal EKG
08/11/23 12:56
EKG- Treatment ONCE
08/11/23 13:02
Complete Blood Count/With Diff Urgent
Comprehensive Metabolic Panel Urgent
Lipase Urgent
08/11/23 13:03
STOOL [C difficile Antigen & Toxins] Urgent
JANNIE Source: Feces/Stool
Specimen Description:
Stool Culture Urgent
JANNIE Source: Feces/Stool
Specimen Description:
0.9% Sodium Chloride 1000 ml [Nss] 1,000 ml IV BOLUS
08/11/23 14:25
Urinalysis Reflex To Culture Urgent
08/11/23 14:30
Lactic Acid Q4H
Comment: CANCEL 2nd LACTIC ACID IF 1st LACTIC ACID IS LESS THAN 2
08/11/23 15:45
Add On- LAB Stat
Tests Added?: Troponin
08/11/23 15:46
Losartan [Cozaar] 25 mg PO NOW STA
08/11/23 15:48
Metoprolol [Lopressor] 25 mg PO NOW STA
08/11/23 16:00
Amlodipine [Norvasc] 5 mg PO DAILY
08/11/23 18:30
Lactic Acid Q4H
Comment: CANCEL 2nd LACTIC ACID IF 1st LACTIC ACID IS LESS THAN 2
Abnormal Lab Results
08/11/23
13:02
WBC 13.3 H 10^3/uL
(4.8-10.8)
RDW 14.6 H %
(11.5-14.5)
Plt Count 584 H 10^3/uL
(130-400)
Abs Immat Gran (auto) 0.1 H 10^3/uL
(0-0.05)
Absolute Neuts (auto) 11.3 H 10^3/uL
(1.4-6.5)
Neutrophils % 84.8 H %
(42.2-75.2)
Lymphocytes % 9.3 L %
(20.5-51.1)
Carbon Dioxide 21 L mmol/L
(22-30)
08/11/23 13:02
08/11/23 13:02
Vital Signs
Initial and Last Documented VS:
Initial Vital Signs
Temp Pulse Resp BP Pulse Ox
98.5 F 139 24 170/87 94
08/11/23 12:51 08/11/23 12:51 08/11/23 12:51 08/11/23 12:51 08/11/23 12:51
Last Documented Vital Signs
Temp Pulse Resp BP Pulse Ox
98.5 F 129 23 172/90 94
08/11/23 12:51 08/11/23 14:45 08/11/23 14:45 08/11/23 14:00 08/11/23 14:45
MDM/Problems Addressed
Differential Diagnosis Includes:
Antibiotic associated colitis, C. difficile colitis, gastroenteritis, dehydration, electrolyte disturbance
MDM/Problems Addressed:
78-year-old female presenting emergency department for evaluation of nausea vomiting and diarrhea with symptoms beginning this morning. Presently stating she feels much better although is still noted to be tachycardic between 130 and 140 bpm.
Patient did receive about a 500 mL bolus of fluids and [address] to the emergency department. Will treat with additional fluids. Patient declining anything additional for her symptoms. Labs and stool studies ordered.
*Pulse Oximetry
Patient hypoxic: no
*Critical Care Note
Total Time (30-74mins, 75-104mins- exclusive of procedures): Not Applicable
Data Reviewed
Review of Other/Old Records Reveals: Labs, Records and Discharge Summary
Patient Management
Discussion with other providers: Hospitalist
Escalation/DeEscalation of care consider admission/obs:
Patient completed her liter of fluids so was given a total of 1500 mL. She remains tachycardic to as high as 138 bpm. Patient's labs are largely unremarkable outside of a mild leukocytosis. I do not suspect an acute surgical pathology in the
abdomen given patient is without any pain as well as her abdominal exam is reassuring. Given her persistent tachycardia despite fluids will admit for further monitoring. Hospitalist team is aware and accepts for continued evaluation and treatment.
ED Attending Note
-
Portions of this chart may have been created with voice recognition software.� Occasional wrong word or��sound alike� substitutions may have occurred due to the inherent limitations of voice recognition software.
Discharge Plan
Departure
Patient Disposition: Admit
Date of Disposition: 08/11/23
Time of Disposition: 14:26
Presentation/result/management discussed w/ accepting MD/DO: Hospitalist
Discharge Problem:
Nausea and vomiting, Diarrhea
Prescriptions:
No Action
amlodipine 5 mg tablet
5 mg PO DAILY
Hold Instructions: Until follow-up with PCP.
Patient Comments:
08/11/2023, pt. believes this med. to be on hold and has not taken it since the last time she was at .
losartan 25 mg Tablet
25 mg PO DAILY
Advil Cold and Sinus 30-200 mg Capsule
1 cap PO BIDPRN PRN (Reason: head cold )
acetaminophen [Tylenol Extra Strength] 500 mg Tablet
1,000 mg PO BIDPRN PRN (Reason: mild pain)
albuterol sulfate 90 mcg/actuation HFA aerosol inhaler
2 puff inhalation R Q6HPRN PRN (Reason: shortness of breath or wheezing)
amoxicillin-pot clavulanate 875-125 mg tablet
1 tab PO Q12H
Patient Comments:
08/11/2023, filled on 07/29/2023 and instructed to take 1 tab Q12H for 14 days; pt. has two tabs left to take, last day supposed to be today.
metoprolol tartrate 25 mg tablet
25 mg PO BID
Referrals:
Kassi Shi MD [Family Provider] -
Interventions
Interventions:
*Risk Screen - Suicide Last Done: 08/11/23 12:53
*General Assessment Last Done: 08/11/23 12:53
*Neglect/Abuse Screening Last Done: 08/11/23 12:53
*ED COVID-19 Vaccine History Last Done: 08/11/23 12:53
[facility] Assessment Last Done: 08/11/23 14:13
Discharge Date and Time
Print Language: HEBREW
[2023-08-11] MEDS: NSS 1000 IV (13:09)
[2023-08-11 13:18] LABS: % Basophils 0.5 % (0-2); % Eosinophils 0.5 % (0-6); % Immature Granulocytes 0.5 % (0-0.5); % Lymphocytes 9.3 % (20.5-51.1); % Monocytes 4.4 % (1.7-9.3); % Neutrophils 84.8 % (42.2-75.2); Absolute Basophils 0.1 10^3/uL (0-0.2); Absolute Eosinophils 0.1 10^3/uL (0-0.7); Absolute Immature Granulocytes 0.1 10^3/uL (0-0.05); Absolute Lymphocytes 1.2 10^3/uL (1.2-3.4); Absolute Monocytes 0.6 10^3/uL (0.1-0.6); Absolute Neutrophils 11.3 10^3/uL (1.4-6.5); Hematocrit 40.6 % (37.0-47.0); Hemoglobin 13.6 g/dL (12.0-16.0); Mean Corp Hgb Conc. 33.5 g/dL (33.0-37.0); Mean Corpuscular Hgb 29.9 pg (27.0-31.0); Mean Corpuscular Volume 89.2 fL (81.0-99.0); Mean Platelet Volume 9.7 fL (7.4-10.4); Nucleated Red Blood Cells % 0 %; Platelet Count 584 10^3/uL (130-400); Red Blood Cell Count 4.55 10^6/uL (4.20-5.40); Red Cell Dist. Width 14.6 % (11.5-14.5); White Blood Cell Count 13.3 10^3/uL (4.8-10.8)
[2023-08-11 13:31] LABS: ALT (SGPT) 13 U/L (0-35); AST (SGOT) 19 U/L (14-36); Albumin 3.6 g/dl (3.5-5.0); Alkaline Phosphatase 119 U/L (38-126); Blood Urea Nitrogen 17 mg/dl (7-17); Calcium 8.9 mg/dl (8.4-10.2); Carbon Dioxide 21 mmol/L (22-30); Chloride 104 mmol/L (98-107); Glucose 83 mg/dl (70-99); Lipase 44 U/L (23-300); Potassium 4.6 mmol/L (3.5-5.1); Sodium 136 mmol/L (135-145); Total Bilirubin 0.5 mg/dl (0.2-1.3); Total Protein 6.6 g/dl (6.3-8.2); eGFR > 60.00
--- NOTE | 2023-08-11 16:46 | HPS.HSE ---
Addendum entered and electronically signed by Juan Wheat MD 08/11/23 17:44:
I personally performed a history and physical exam of the patient and discussed management with the resident. I reviewed the resident's note and agree with the documented findings and plan of care HPI/CC except for change in documentation.
CVS: S1-S2 normal
Chest: Bronchial breath sounds and decreased breath sounds at the left base
No spine tenderness noted
No lumbar tenderness noted on exam
Abdomen: Soft, NT / Bowel sounds present
Extremities: No edema, normal pulses
CLIENT SERVICES DIRECTOR: Non focal exam
# Nausea vomiting and diarrhea started last night.
Patient endorses that she had a hoagie from a wine leftover in the fridge which she ate the chicken salad from it.
Possible gastroenteritis
Also takes Advil rule out gastritis secondary to NSAIDs.
Being on antibiotics recently will also rule out C. difficile.
Check stool cultures, clear liquids for tonight with IV fluids
# Chest discomfort possibly gastritis
EKG reviewed by me-sinus tachycardia rate 137 Q waves inferior leads age undetermined
T inversion in the lateral leads.
Agree with troponin
Chest x-ray to evaluate recent pneumonia
# Recent streptococcal pneumonia-completed antibiotics
# Thrombocytosis
# Hypertension-continue amlodipine, losartan and metoprolol
# Lumbar area pain on the left side-check urinalysis
X-ray of the lumbar spine
# COPD-stable
# Smoking history-cessation counseling
# DVT prophylaxis-Lovenox
# Patient wants to be DNR
Original Note:
Family Physician
-
Family Physician: Kassi Shi
Chief Complaint
-
Nausea/vomiting/diarrhea
History of Present Illness
78-year-old female with history of COPD, hypertension, recent hospitalization for pneumonia, presented to the ED via EMS for 3 episodes of watery diarrhea overnight, 3 episodes of bilious vomiting, headache, sore throat generalized weakness. When
she visited her primary doctor yesterday she was well, but experienced chills later in the evening. Nausea vomiting diarrhea began around 1 AM this morning. She recalls eating her leftover refrigerated hoagie from [facility] for dinner last night. She
admits to decreased p.o. intake x 1 to 2 days. She also has chest discomfort/pressure. She describes left lower back pain x 2 weeks, but denies fever, new foods, sick contacts or recent travel. She was given Zofran by EMS and nausea momentarily
resolved. In the ED she was tachycardic and hypertensive and tachypneic, with leukocytosis and thrombocytosis. She remains tachycardic after bolus IV fluids. At time of examination, she has not taken any of her daily antihypertensives.
Medical History
Past Medical History
Past Medical History: Reports COPD, HTN and Other (Recent pneumonia)
Past Surgical History: Reports None
Social History
Tobacco: Smoker (1 pack a day)
Alcohol: Occasional
Drug: None
Living: With Family
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
Family History
Family History: Not pertinent
Allergies / Home Medications
Allergies reflects when Allergies were last updated in [employer].
Home Medications with original date entered in [employer]
Allergy/Medication List:
Allergies
Allergy/AdvReac Type Severity Reaction Status Date / Time
No Known Allergies Allergy Unverified 07/26/23 12:27
Home Medications
amlodipine 5 mg tablet 5 mg PO DAILY Blood Pressure 07/26/23
losartan 25 mg tablet 25 mg PO DAILY Blood Pressure 07/26/23
pseudoephedrine-ibuprofen 30 mg-200 mg capsule (Advil Cold and Sinus) 1 cap PO BIDPRN PRN head cold 07/26/23
acetaminophen 500 mg tablet (Tylenol Extra Strength) 1,000 mg PO BIDPRN PRN mild pain 08/11/23
albuterol sulfate 90 mcg/actuation aerosol inhaler 2 puff inhalation R Q6HPRN PRN shortness of breath or wheezing 08/11/23
amoxicillin 875 mg-potassium clavulanate 125 mg tablet 1 tab PO Q12H Infection 08/11/23
metoprolol tartrate 25 mg tablet 25 mg PO BID Blood Pressure 08/11/23
Review of Systems
-
History Source: Patient
Constitutional: Reports Fatigue and Chills
EENT: Denies Sore Throat
Respiratory: Denies Cough or Trouble Breathing
Cardiac: Reports Other (Chest discomfort/pressure)
Abdomen/GI: Reports Nausea, Vomiting and Diarrhea; Denies Abdominal Pain or Bloody Stools
: Denies Dysuria, Difficulty Voiding or Bleeding
Musculoskeletal: Reports Other (Left lower back pain)
Neurological: Reports Headache
Physical Exam
Vital Signs
Vital Signs
Temp Pulse Resp BP Pulse Ox
98.5 F 129 23 172/90 94
08/11/23 12:51 08/11/23 14:45 08/11/23 14:45 08/11/23 14:00 08/11/23 14:45
Physical Exam
General: Well Developed, Well Nourished, No Apparent Distress and Comfortable; No Respiratory Distress
HEENT: NormoCephalic, Anicteric, Moist mucous membranes and Atraumatic
Respiratory: Clear, Crackles (LLL) and Non Labored Respirations; No Accessory Resp Muscle Use
Cardiac: S1/S2, Regular Rhythm and Tachycardia; No Murmur, Rub, Peripheral Edema or Calf Tenderness
GI: Soft, Non Tender, Non Distended, Normal Bowel Sounds and Other (No guarding or rebound)
Musculoskeletal: No Clubbing, No Cyanosis and No Edema
Skin: Warm and Dry; No Jaundice
Neuro: Awake, Alert and Oriented
Psych: Calm
Laboratory Results
-
08/11/23 13:02
08/11/23 13:02
Laboratory Results
Total Bilirubin 0.5 mg/dl (0.2-1.3) 07/04/24 13:02
AST 19 U/L (14-36) 08/11/23 13:02
ALT 13 U/L (0-35) 08/11/23 13:02
Alkaline Phosphatase 119 U/L (38-126) 08/11/23 13:02
Troponin I Cancelled 08/11/23 15:43
Lipase 44 U/L (23-300) 08/11/23 13:02
Impression/Plan
-
IMPRESSION: 78-year-old female with history of COPD, hypertension, recent hospitalization for pneumonia, who presented with nausea vomiting diarrhea and chest discomfort plus tachycardia.
Nausea, vomiting, diarrhea:
With chills, headache
Gastroenteritis versus antibiotic side effect versus antibiotic adverse effect versus other causes
Serum lipase normal
-Check lactate
-Check norovirus
-Check C. difficile and stool cultures
-Clear fluid diet for tonight, will slowly advance as tolerated tomorrow
-Gentle IV fluids
Chest discomfort
+Tachycardia, s/p bolus IV fluids. Recent 3-day hospitalization for left lower lobe pneumonia, discharged on 07/28 on amoxicillin�clavulanate, final dose was to be today
-Check troponin
-Chest x-ray
-Continue daily metoprolol
Lower back pain:
X 2 weeks. No recent trauma. History of right sciatica.
-Lumbar spine x-ray
Hypertension:
Continue home hypertensives metoprolol, losartan, amlodipine
COPD:
No breathing symptoms,
-Albuterol inhaler as needed
Current smoker
1 pack a day smoker
-Nicotine patch
-Cessation counseling
DVT prophylaxis: Lovenox
CODE STATUS: DNR
POA/emergency contact Katlyn Amber: [phone]
[2023-08-11] MEDS: ZOFRAN 4 MG IV (17:45)
[2023-08-11] MEDS: PROTONIX IV 40 MG IV (17:46)
[2023-08-11] MEDS: NSS (PRESERVATIVE FREE) 10 ML IV (17:46)
[2023-08-11] MEDS: LOVENOX 40 MG SC (20:11)
[2023-08-11 20:12] LABS: Lactic Acid 0.9 mmol/L (0.7-2.0)
[2023-08-11] MEDS: NORVASC 5 MG PO (20:14)
[2023-08-11] MEDS: LOPRESSOR 25 MG PO (21:33)
[2023-08-11] MEDS: AUGMENTIN 875 MG/125 MG 1 TABLET PO (21:33)
[2023-08-12 06:38] LABS: Hematocrit 38.1 % (37.0-47.0); Hemoglobin 12.8 g/dL (12.0-16.0); Mean Corp Hgb Conc. 33.6 g/dL (33.0-37.0); Mean Corpuscular Hgb 30.3 pg (27.0-31.0); Mean Corpuscular Volume 90.1 fL (81.0-99.0); Platelet Count 531 10^3/uL (130-400); Red Blood Cell Count 4.23 10^6/uL (4.20-5.40); Red Cell Dist. Width 14.7 % (11.5-14.5)
[2023-08-12] MEDS: TYLENOL 1000 MG PO (06:45)
[2023-08-12] MEDS: ZOFRAN 4 MG IV (06:46)
[2023-08-12 06:50] LABS: Blood Urea Nitrogen 14 mg/dl (7-17); Calcium 8.9 mg/dl (8.4-10.2); Carbon Dioxide 22 mmol/L (22-30); Chloride 105 mmol/L (98-107); Glucose 70 mg/dl (70-99); Potassium 4.6 mmol/L (3.5-5.1); Sodium 136 mmol/L (135-145); eGFR > 60.00
[2023-08-12 07:28] VITALS: BP 145/69
--- NOTE | 2023-08-12 07:30 | W.PN.HOSP.TC ---
Addendum entered and electronically signed by Juan Wheat MD 08/12/23 12:05:
CVS: S1-S2 normal
Chest: Bronchial breath sounds and decreased breath sounds at the left base
No spine tenderness noted
No lumbar tenderness noted on exam
Abdomen: Soft, NT / Bowel sounds present
Extremities: No edema, normal pulses
LABORATORY AIDE: Non focal exam
# Nausea vomiting and diarrhea started last night.
Patient endorses that she had a hoagie from a wine leftover in the fridge which she ate the chicken salad from it.
Possible gastroenteritis
Also takes Advil rule out gastritis secondary to NSAIDs.
C diff neg and Norovirus neg
Check stool cultures-Pending.
# Chest discomfort possibly gastritis
T inversion in the lateral leads.
Chest x-ray reviewed by me- PNA and also fluid
Check USS chest
# Recent streptococcal pneumonia-completed antibiotics
# Thrombocytosis-Likely reactive- Follow
# Hypertension-continue amlodipine, losartan and metoprolol
# Lumbar area pain on the left side-check urinalysis
X-ray of the lumbar spine-Mild multilevel degenerative disc disease within lumbar spine with grade 1 anterolisthesis at L5-S1. No compression deformities.
# COPD-stable
# Smoking History-Cessation counseling
# DVT prophylaxis-Lovenox
# Patient wants to be DNR
Original Note:
Today's Communication/Plan
-
Left chest ultrasound, advance diet as tolerated
Assessment / Plan
Assessment / Plan
IMPRESSION: 78-year-old female with history of COPD, hypertension, recent hospitalization for pneumonia, who presented with nausea vomiting diarrhea and chest discomfort plus tachycardia.
Nausea, vomiting, diarrhea:
With chills, headache
Gastroenteritis versus antibiotic side effect versus antibiotic adverse effect versus other causes
Serum lipase normal, lactate normal
-Awaiting norovirus, C. difficile, stool cultures
-Improved appetite, no vomiting, reduced nausea, will advance diet
-Gentle IV fluids
Chest discomfort
+Tachycardia, s/p bolus IV fluids. Recent 3-day hospitalization for left lower lobe pneumonia, discharged on 07/28 on amoxicillin�clavulanate, completed course
Chest x-ray 08/10: Left lower lobe pneumonia and adjacent small to moderate left pleural effusion.
-Will get left chest ultrasound
Lower back pain:
X 2 weeks. No recent trauma. History of right sciatica.
-Lumbar spine x-ray 08/10: Mild multilevel degenerative disc disease within lumbar spine with grade 1 anterolisthesis at L5-S1. No compression deformities.
Thrombocytosis:
-Likely reactive, improving
Hypertension:
Continue home hypertensives metoprolol, losartan, amlodipine
COPD:
No breathing symptoms,
-Albuterol inhaler as needed
Current smoker
1 pack a day smoker
-Pt declines nicotine patch
-Cessation counseling
DVT prophylaxis: Lovenox
CODE STATUS: DNR
POA/emergency contact Katlyn Amber: [phone]
Anticipated Discharge: 24 - 48 hours
Subjective/Interval History
-
Date of Service: August 12, 2023
One loose bowel movement this AM. Dark, non-bloody stool. Pt has improved appetite and would like to advance diet
Objective Data
-
Labs:
Laboratory Results
08/12/23
06:01
WBC 12.0 H
Hgb 12.8
Hct 38.1
Plt Count 531 H
Sodium 136
Potassium 4.6
Chloride 105
Carbon Dioxide 22
BUN 14
Creatinine 0.5 L
Glucose 70
Calcium 8.9
Vital Signs:
Vital Signs
Temp Pulse Resp BP Pulse Ox
98.2 F 96 16 145/69 92
08/12/23 07:28 08/12/23 07:28 08/12/23 07:28 08/12/23 07:28 08/12/23 07:28
Review of Systems
-
History Source: Patient
Constitutional: Reports No Symptoms
Respiratory: Reports No Symptoms; Denies Cough or Trouble Breathing
Cardiac: Reports No Symptoms; Denies Chest Pain, Palpitations or Syncope
Abdomen/GI: Reports Nausea; Denies Vomiting
Genitourinary: Reports No Symptoms; Denies Dysuria, Difficulty Voiding or Bleeding
Musculoskeletal: Reports Joint Pain (Left lower back)
Neuro: Denies Dizzy or Headache
Hematologic / Lymphatic: Denies Bleeding
Physical Exam
-
General: Well Developed, Well Nourished, No Apparent Distress and Comfortable; Negative Respiratory Distress
HEENT: Normocephalic, Atraumatic and Moist Mucous Membranes
Respiratory: Other (Mildly reduced breath sounds on the left lower lobe)
Cardiac: Regular Rhythm and S1/S2; Negative Murmur, Rub, Calf Tenderness or Hair's Sign
GI: Soft, Nontender, Nondistended and Normal Bowel Sounds
Genito-urinary: No Costovertebral Tender
Musculoskeletal: No Clubbing, No Cyanosis and No Edema
Skin: Warm and Dry
Neuro: Awake, Alert and Oriented
Psych: Calm
[2023-08-12] MEDS: LOPRESSOR 25 MG PO ×2 (08:39→20:21)
[2023-08-12] MEDS: NORVASC 5 MG PO (08:39)
[2023-08-12] MEDS: PROTONIX 40 MG PO (08:39)
[2023-08-12] MEDS: COZAAR 25 MG PO (08:40)
[2023-08-12 10:31] LABS: Urine Albumin Negative (Neg - Trace); Urine Bilirubin Negative (Negative); Urine Character Clear (Clear); Urine Color Yellow; Urine Glucose Negative (Negative); Urine Leukocyte Negative (Negative); Urine Nitrite Negative (Negative); Urine Occult Blood Negative (Negative); Urine Urobilinogen Negative (Neg - 1+)
[2023-08-12 10:48] LABS: Urine Ketone Negative (Negative); Urine pH 6.5 (5.0-9.0)
[2023-08-12] MEDS: LIDOCAINE 4% PATCH 1 PATCH TOPICAL (12:18)
[2023-08-12 13:15] LABS: Troponin I < 0.012 ng/ml
--- NOTE | 2023-08-12 15:08 | PTCARENOTE ---
Patient tolerating 50% Low residue diet. Patient states, 'Nothing taste good.' Patient still with low back ache, improved with Lidoderm patch. OOB ambulating without difficulty.
[2023-08-12 15:10] VITALS: BP 134/63
[2023-08-12] MEDS: LOVENOX 40 MG SC (17:32)
[2023-08-12 23:00] VITALS: BP 140/68
[2023-08-13 07:00] VITALS: BP 168/90
--- NOTE | 2023-08-13 07:34 | W.PN.HOSP.TC ---
Addendum entered and electronically signed by Juan Wheat MD 08/13/23 13:40:
Seen and examined the patient with resident. Patient feeling well had a diet and tolerating well. No nausea vomiting or diarrhea.
She recollected that she was she had leg length to concern which involved the outside for some time and then put in the fridge and radiated. Likely has gastroenteritis
No shortness of breath or chest pain. Patient is aware that she needs to follow-up with pulmonary and also get repeat imaging as outpatient and this is very important.
Glucose was 227 today. Will ask patient to get hemoglobin A1c as outpatient
Stool cultures are pending. Patient to follow-up with PCP for results.
discharge time more than 30 min
Original Note:
Today's Communication/Plan
-
Advance diet as tolerated, discharge planning
Assessment / Plan
Assessment / Plan
IMPRESSION: 78-year-old female with history of COPD, hypertension, recent hospitalization for pneumonia, who presented with nausea vomiting diarrhea and chest discomfort plus tachycardia.
Nausea, vomiting, diarrhea:
With chills, headache
Gastroenteritis versus antibiotic side effect versus antibiotic adverse effect versus other causes
Serum lipase normal, lactate normal
-Negative norovirus, C. difficile, stool cultures pending
-Improved appetite, no diarrhea, vomiting or nausea. Patient tolerated low residue diet, will advance diet
Chest discomfort:
Gastritis versus cardiac versus pulmonary cause
+Tachycardia, s/p bolus IV fluids.
EKG 08/10: Sinus tachycardia 137. Left axis deviation, inferior infarct age undetermined.
Chest x-ray 08/10: Left lower lobe pneumonia and adjacent small to moderate left pleural effusion.
L chest US 08/11: Small left pleural effusion.
Normal troponin
-Likely gastritis, continue PPI
Recent strep pneumonia
Completed antibiotic course
Lower back pain:
Left lumbar area pain X 2 weeks. No recent trauma. History of right sciatica.
-Lumbar spine x-ray 08/10: Mild multilevel degenerative disc disease within lumbar spine with grade 1 anterolisthesis at L5-S1. No compression deformities.
Thrombocytosis:
-Likely reactive, improving
Hypertension:
Continue home hypertensives metoprolol, losartan, amlodipine
COPD:
No breathing symptoms,
-Albuterol inhaler as needed
Current smoker
1 pack a day smoker
-Pt declines nicotine patch
-Cessation counseling
DVT prophylaxis: Lovenox
CODE STATUS: DNR
POA/emergency contact Katlyn Amber: [phone]
Anticipated Discharge: Today
Subjective/Interval History
-
Date of Service: August 13, 2023
Symptoms resolved. No nausea or vomiting or diarrhea. Patient tolerated low residue diet, can advance. Patient feels well to go home
Objective Data
-
Labs:
Laboratory Results
08/13/23
06:00
WBC Pending
Hgb Pending
Hct Pending
Plt Count Pending
Sodium Pending
Potassium Pending
Chloride Pending
Carbon Dioxide Pending
BUN Pending
Creatinine Pending
Glucose Pending
Calcium Pending
Vital Signs:
Vital Signs
Temp Pulse Resp BP Pulse Ox
98.0 F 73 16 140/68 92
08/12/23 23:00 08/12/23 23:00 08/12/23 23:00 08/12/23 23:00 08/12/23 23:00
I&O
08/12/23 08/13/23 08/14/23
06:59 06:59 06:59
Intake Total 1320 / 1320
Balance 1320 / 1320
Review of Systems
-
History Source: Patient
Constitutional: Reports No Symptoms
Respiratory: Denies No Symptoms, Cough or Trouble Breathing
Cardiac: Reports No Symptoms; Denies Chest Pain, Diaphoresis or Palpitations
Abdomen/GI: Reports No Symptoms; Denies Abdominal Pain, Nausea, Vomiting or Diarrhea
Physical Exam
-
General: Well Developed, Well Nourished, No Apparent Distress and Comfortable
Respiratory: Non Labored Respirations and Other (Positive egophony in left lower lobe)
Cardiac: Regular Rhythm and S1/S2; Negative Murmur, Rub or Calf Tenderness
GI: Soft, Nontender, Nondistended and Normal Bowel Sounds
Skin: Warm and Dry
Neuro: Awake, Alert and Oriented
Psych: Calm
[2023-08-13] MEDS: PROTONIX 40 MG PO (08:24)
[2023-08-13] MEDS: COZAAR 25 MG PO (08:24)
[2023-08-13] MEDS: LIDOCAINE 4% PATCH 1 PATCH TOPICAL (08:25)
[2023-08-13] MEDS: NORVASC 5 MG PO (08:25)
[2023-08-13] MEDS: LOPRESSOR 25 MG PO (08:25)
[2023-08-13] MEDS: ProAIR HFA INHALER 2 PUFF INH (08:34)
[2023-08-13 10:18] LABS: Hematocrit 38.7 % (37.0-47.0); Hemoglobin 12.6 g/dL (12.0-16.0); Mean Corp Hgb Conc. 32.6 g/dL (33.0-37.0); Mean Corpuscular Hgb 29.8 pg (27.0-31.0); Mean Corpuscular Volume 91.5 fL (81.0-99.0); Mean Platelet Volume 9.8 fL (7.4-10.4); Platelet Count 496 10^3/uL (130-400); Red Blood Cell Count 4.23 10^6/uL (4.20-5.40); Red Cell Dist. Width 14.6 % (11.5-14.5); White Blood Cell Count 8.6 10^3/uL (4.8-10.8)
[2023-08-13 11:13] LABS: Blood Urea Nitrogen 9 mg/dl (7-17); Calcium 9.1 mg/dl (8.4-10.2); Carbon Dioxide 26 mmol/L (22-30); Chloride 102 mmol/L (98-107); Glucose 227 mg/dl (70-99); Potassium 4.1 mmol/L (3.5-5.1); Sodium 137 mmol/L (135-145); eGFR > 60.00
--- NOTE | 2023-08-13 12:34 | W.DCSUMMARY ---
Documented by User: Ro Alex MD, Resident 08/13/23 13:00
Discharge Summary
Discharge Data
Date of Admission: 08/11/23
Date of Discharge: 08/13/23
-
Pending Results: Yes
Additional Pending Results:
Stool culture
Hospital Course
Discharge physician: Juan Wheat MD; Ro Alex MD
Disposition: Home
Primary care physician: Kassi Shi MD
Primary discharge diagnoses: Gastroenteritis
Diagnosis prior to admission: Pneumonia/pleural effusion, COPD, hypertension
Hospital course:
78-year-old female with past medical history of recent hospitalization for LLL strep pneumonia, COPD, hypertension presented to [facility] ED on 08/10 with nausea, vomiting, diarrhea overnight. 3 episodes of watery diarrhea, 3 episodes of
yellowish nonbloody vomiting. She admits to chills, headache, generalized weakness, reduced p.o. intake sore throat, mild chest discomfort, left lower back pain. Recalled having leftover chicken salad but denied fever, sick contacts or recent
travel. She had not taking her daily antihypertensives. Upon arrival to the ED she was tachycardic hypertensive tachypneic with leukocytosis and thrombocytosis.
EKG showed tachycardia, troponin was normal. Stool was negative for norovirus, Giardia, C. difficile. Stool cultures pending.
Symptom management and supportive treatments. Diet was slowly advanced as patient tolerated. Upon discharge, leukocytosis was resolved with thrombocytosis markedly improving, 496 at discharge.
She is to make appointment with [facility] pulmonology within 4 weeks of discharge for pulmonary evaluation following previous admission, including pulmonary function tests and repeat chest CT.
Recommended to follow-up with primary care physician.
Relevant data:
EKG 08/10: sinus tachycardia with left axis deviation, inferior infarct age undetermined.
Lumbar spine x-ray 08/10: Mild multilevel degenerative disc disease within lumbar spine with grade 1 anterolisthesis at L5-S1. No compression deformities.
Chest x-ray 08/10: Left lower lobe pneumonia and adjacent small to moderate left pleural effusion
Left chest ultrasound 08/11: Small left pleural effusion.
Discharge Plan
-
Patient Disposition: Home (Routine Discharge)
Discharge Diagnosis/Procedures: Gastroenteritis, Recent Pneumonia, Hypertension
Diet: As tolerated
Activity: As tolerated
Driving Restrictions: As prior to admission
Others Tests: Imaging of chest, X ray or CT as outpatient. THis is important to make sure there is no other changes under the pneumonia in the left lung.
Activity Restrictions/Additional Instructions:
Please remember to call for an appointment with [facility] pulmonology, Dr. Clive Harris within 4 weeks (4 to 6 weeks from your previous discharge). You will need pulmonary function tests and repeat chest CT
Referrals:
Clive Harris MD [Active] -
Kassi Shi MD [Family Provider] - in less than 1 week
Additional Discharge Medication Instructions: Stop Advil.
Prescriptions:
New
omeprazole 40 mg capsule,delayed release(DR/EC)
40 mg PO DAILY Qty: 30 0RF
Continued
amlodipine 5 mg tablet
5 mg PO DAILY
Hold Instructions: Until follow-up with PCP.
Patient Comments:
08/11/2023, pt. believes this med. to be on hold and has not taken it since the last time she was at .
losartan 25 mg Tablet
25 mg PO DAILY
acetaminophen [Tylenol Extra Strength] 500 mg Tablet
1,000 mg PO BIDPRN PRN (Reason: mild pain)
albuterol sulfate 90 mcg/actuation HFA aerosol inhaler
2 puff inhalation R Q6HPRN PRN (Reason: shortness of breath or wheezing)
metoprolol tartrate 25 mg tablet
25 mg PO BID
Discontinued
Advil Cold and Sinus 30-200 mg Capsule
1 cap PO BIDPRN PRN (Reason: head cold )
Hold Instructions: Resume on 09/10/23. NSAIDs can cause gastritis -inflammation of stomach lining. Hold until follow-up with PCP
amoxicillin-pot clavulanate 875-125 mg tablet
1 tab PO Q12H
Patient Comments:
08/11/2023, filled on 07/29/2023 and instructed to take 1 tab Q12H for 14 days; pt. has two tabs left to take, last day supposed to be today.
Discharge Orders:
Discharge Patient (As Directed); Ordered 08/13/23
Ordered By: Ro Alex
Discharge Date and Time
Print Language: PARAGUAYAN

Documented by User: Juan Wheat MD 08/13/23 13:38
Discharge Summary
Discharge Data
Date of Admission: 08/11/23
Date of Discharge: 08/13/23
Discharge Plan
-
Patient Disposition: Home (Routine Discharge)
Discharge Diagnosis/Procedures: Gastroenteritis, Recent Pneumonia, Hypertension
Diet: As tolerated
Activity: As tolerated
Driving Restrictions: As prior to admission
Others Tests: Imaging of chest, X ray or CT as outpatient. THis is important to make sure there is no other changes under the pneumonia in the left lung.
Activity Restrictions/Additional Instructions:
Please remember to call for an appointment with [facility] pulmonology, Dr. Clive Harris within 4 weeks (4 to 6 weeks from your previous discharge). You will need pulmonary function tests and repeat chest CT
Referrals:
Clive Harris MD [Active] -
Kassi Shi MD [Family Provider] - in less than 1 week
Additional Discharge Medication Instructions: Stop Advil.
Prescriptions:
New
omeprazole 40 mg capsule,delayed release(DR/EC)
40 mg PO DAILY Qty: 30 0RF
Continued
amlodipine 5 mg tablet
5 mg PO DAILY
Hold Instructions: Until follow-up with PCP.
Patient Comments:
08/11/2023, pt. believes this med. to be on hold and has not taken it since the last time she was at .
losartan 25 mg Tablet
25 mg PO DAILY
acetaminophen [Tylenol Extra Strength] 500 mg Tablet
1,000 mg PO BIDPRN PRN (Reason: mild pain)
albuterol sulfate 90 mcg/actuation HFA aerosol inhaler
2 puff inhalation R Q6HPRN PRN (Reason: shortness of breath or wheezing)
metoprolol tartrate 25 mg tablet
25 mg PO BID
Discontinued
Advil Cold and Sinus 30-200 mg Capsule
1 cap PO BIDPRN PRN (Reason: head cold )
Hold Instructions: Resume on 09/10/23. NSAIDs can cause gastritis -inflammation of stomach lining. Hold until follow-up with PCP
amoxicillin-pot clavulanate 875-125 mg tablet
1 tab PO Q12H
Patient Comments:
08/11/2023, filled on 07/29/2023 and instructed to take 1 tab Q12H for 14 days; pt. has two tabs left to take, last day supposed to be today.
Discharge Orders:
Discharge Patient (As Directed); Ordered 08/13/23
Ordered By: Ro Alex
Discharge Date and Time
Print Language: PARAGUAYAN
[2023-08-13 13:15] VITALS: BP 133/63
--- NOTE | 2023-08-13 15:23 | CM ---
Alert awake oriented patient who lives alone in a 1 story home with 3 step to enter and bed and bathroom on first floor. She is independent in driving and in all activities of daily living.She was offered VN she declined need.Her daughter Katlyn
will drive her to her place at [place] to recover.
No VN hx / No SNF history
[facility]
PCP DR Kun Shi
[facility] Declined VN
== END 2023-08-13 15:00 | disposition home or self-care (01) | DRG 392 ==
LOC: 3 WEST ACU 17:01
PROVIDERS: Physician Assistant Medical; Student in an Organized Health Care Education/Training Program; ADMITTING PHYSICIAN Hospitalist; EMERGENCY PHYSICIAN Student in an Organized Health Care Education/Training Program; FAMILY PHYSICIAN Family Medicine
DX: K52.9 Noninfective gastroenteritis and colitis, unspecified (principal); I10 Essential (primary) hypertension; J44.9 Chronic obstructive pulmonary disease, unspecified; M54.50 Low back pain, unspecified; M51.37 Other intervertebral disc degeneration, lumbosacral region; F17.210 Nicotine dependence, cigarettes, uncomplicated; Z66 Do not resuscitate; R00.0 Tachycardia, unspecified; D75.839 Thrombocytosis, unspecified; D72.829 Elevated white blood cell count, unspecified; Z79.899 Other long term (current) drug therapy; Z87.01 Personal history of pneumonia (recurrent); Z86.19 Personal history of other infectious and parasitic diseases
CPT/HCPCS: 71046; 72110; 76604; 80048; 80053; 81003; 83605; 83690; 84484; 85025; 85027; 87045; 87046; 87324; 87427; 87449; 87798; 93005; 94640; 96360; 99285